=== PATIENT | female | born 1980 ===

== ENCOUNTER 2021-01-12 14:41 | Outpatient (REF) | payer MEDICAID, SELFPAY ==
--- OUTSIDE RECORDS SUMMARY | 2021-01-12 14:59 | XMS_ITS | Continuity of Care Document ---
:1980 Author Organization [facility] Address [address] [place] [address] Care Team Providers Name Role Phone Clara Huntley Primary Care Physician Allergies, Adverse Reactions, Alerts Allergen Type Severity Reaction Last Updated Verified Status codeine Adverse Reaction nausea September 26, 2016 Y Active Medications Active Medications Medication Dose Units Route Sig Qty Start Date Status Trazodone Hydrochloride 100 mg ORAL BEDTIME May 16, 2014 Active [Trazodone 100 mg tab] Omeprazole 20 mg ORAL DAILY May 16, 2014 Acti ve Fluoxetine Hydrochloride 40 mg ORAL DAILY Decemb r 2013 Active [Fluoxetine 40 mg cap] Cyclobenzaprine 10 MG ORAL Q8H PRN For pain 4 September 132016 Active Naproxen 500 MG ORAL TWICE A DAY 20 September 26, 2016 Acti ve Discontinued Medications Medication Dose Units Route Sig Qty Start Date Discontinu ed Date Status 1 ORAL DAILY August 17, 2011 November 12, 2 012 Discontinued Problem List No problem information available. Procedures Procedure Date Status CT Abd Pel w/o Contrast September 26, 2016 active Chest 2 vw July 24, 2016 completed EMERGENCY DEPT VISIT July 24, 2016 active EMERGENCY DEPT VISIT July 24, 2016 active ELECTROCARDIOGRAM REPORT July 24, 2016 active ELECTROCARDIOGRAM TRACING July 24, 2016 active FIBRIN DEGRADATION QUANT July 24, 2016 active COMPLETE CBC W/AUTO DIFF WBC July 24, 2016 active ASSAY OF UREA NITROGEN July 24, 2016 active ASSAY OF TROPONIN QUANT July 24, 2016 active ASSAY THYROID STIM HORMONE July 24, 2016 active ASSAY OF LIPASE July 24, 2016 active ASSAY GLUCOSE BLOOD QUANT July 24, 2016 active ASSAY OF CREATININE July 24, 2016 active ELECTROLYTE PANEL July 24, 2016 active CHEST X-RAY 2VW FRONTAL&LATL July 24, 2016 active ROUTINE VENIPUNCTURE July 24, 2016 active ECG MONIT/REPRT UP TO 48 HRS July 16, 2016 active ECG MONIT/REPRT UP TO 48 HRS July 16, [address] Abd Pel w/ Contrast June 02, 2016 completed URINE TEST June 02, 2016 active URINALYSIS AUTO W/O SCOPE June 02, 2016 active HEPATIC FUNCTION PANEL June 02, [address] ABD & PELV W/CONTRAST June 02, 2016 active Reason for Referral Reason for Referral Date Referral Provider Office Contact Locat ion was Provided Relevant Diagnostic Tests and/or Laboratory Data Laboratory Results Test Date/Time Result Interp. Ref. Result Comment Range White Blood Count September 26, 2016 10.30 1000/mm3 4.8-10.8 3:20pm Red Blood Count September 26, 2016 4.65 M/mm3 4.20-5.40 3:20pm Hemoglobin September 26, 2016 12.7 g/dL 12.0-16.0 3:20pm Hematocrit September 26, 2016 38.4 % 37-47 3:20pm Mean Corpuscular September 26, 2016 82.6 fL 81.0-99.0 Volume 3:20pm Mean Corpuscular September 26, 2016 27.3 pg 27-31 Hemoglobin 3:20pm Mean Corpuscular September 26, 2016 33.1 g/dL 33-37 Hemoglobin Concent 3:20pm Red Cell Distribution September 26, 2016 13.5 % 11.5-14.5 Width 3:20pm Platelet Count September 26, 2016 466 1000/mm3 High 140-440 3:20pm Mean Platelet Volume September 26, 2016 9.4 fL 7.4-10.4 3:20pm Neutrophils (%) September 26, 2016 56.9 % 40.0-72.0 (Auto) 3:20pm Lymphocytes (%) September 26, 2016 32.9 % 17-45 (Auto) 3:20pm Monocytes (%) (Auto) September 26, 2016 8.7 % 3-11 3:20pm Eosinophils (%) September 26, 2016 1.2 % 0-3 (Auto) 3:20pm Basophils (%) (Auto) September 26, 2016 0.3 % 0-1 3:20pm Neutrophils # (Auto) September 26, 2016 5.86 1000/mm3 1.4-6.5 3:20pm Lymphocytes # (Auto) September 26, 2016 3.39 1000/mm3 1.2-3.4 3:20pm Monocytes # (Auto) September 26, 2016 0.90 1000/mm3 High 0.0-0.8 3:20pm Eosinophils # (Auto) September 26, 2016 0.12 1000/mm3 0.0-0.7 3:20pm Basophils # (Auto) September 26, 2016 0.03 1000/mm3 0.0-0.1 3:20pm Differential Method September 26, 2016 Automated 3:20pm Erythrocyte September 16, 2016 6 mm/hr 0-15 Sedimentation Rate 4:00pm D-Dimer July 24, < 100 ng/mLDDU 1-600 This test should 2017 6:50pm not be used a s absolute evide nce for PE or DVT. As with all in vi tro diagnostic alfredo ts, the results sh ould be interpreted by clinician in conjunction wi clinical findi ngs and other test results. Sodium Level September 26, 2016 139 mmol/L 137-145 3:20pm Potassium Level September 26, 2016 4.1 mmol/L 3.6-5.0 3:20pm Chloride Level September 26, 2016 101 mmol/L 98-107 3:20pm Carbon Dioxide Level September 26, 2016 27 mmol/L 22-30 3:20pm Anion Gap September 26, 2016 11 7-16 3:20pm Blood Urea Nitrogen September 26, 2016 10 mg/dL 7-17 3:20pm Creatinine September 26, 2016 0.7 mg/dL 0.52-1.04 3:20pm Glomerular Filtration September 26, 2016 > 60 mL/min Rate Calc 3:20pm Glucose Level September 26, 2016 95 mg/dL 70-100 3:20pm Calcium Level September 26, 2016 9.0 mg/dL 8.4-10.2 3:20pm Calcium Adjusted for September 26, 2016 9.1 mg/dL 8.4-10.2 Albumin 3:20pm Total Bilirubin September 26, 2016 0.6 mg/dL 0.2-1.3 3:20pm Direct Bilirubin June 02, 0.0 mg/dL 0-0.3 2015 4:47pm Aspartate Amino September 26, 2016 24 U/L 14-36 Transf (AST/SGOT) 3:20pm Alanine September 26, 2016 30 U/L 9-52 Aminotransferase 3:20pm (ALT/SGPT) Creatine Kinase September 16, 2016 62 U/L 30-137 4:00pm Troponin I July 24, < 0.012 ng/mL 0-0.034 Reference Range: <0.034 ng/mL 2016 6:50pm AMI Cut-off 0.120 ng/mL Total Protein September 26, 2016 6.8 g/dL 6.3-8.2 3:20pm Albumin September 26, 2016 4.2 g/dL 3.5-5.0 3:20pm Alkaline Phosphatase September 26, 2016 47 U/L 38-126 3:20pm Lipase September 26, 2016 136 U/L 23-300 3:20pm Folate June 17, 18.5 ng/mL Deficient: L ess than 3.4 ng/mL 2016 12:06am Indetermina te: 3.4-5.4 ng/mL Normal: Grea ter than 5.4 ng/mL Test Performed by: [place] [address] Stock Worker: Bean Almanza MD , Ph D Vitamin D June 17, 59 pg/mL -----ADDITIONAL INFORMATION 1,25-Dihydroxy 2016 12:06am This alfredo t was developed and its performance characteristics determined by [facility] in a manner consistent with CLIA requirements. This test has not been cleared or approved by the U.S. Food and Drug Administration. Test Performed by: [place] [address] Laboratory Dir bita: Fer Castro II, M.D., Ph.D. Free Thyroxine June 17, 1.26 ng/dL 0.78-2.19 2016 12:06am Thyroid Stimulating July 24, 1.43 mlU/L 0.47-4.68 Hormone (TSH) 2016 6:50pm Vitamin B12 Level June 17, 303 pg/mL [phone] 12:06am Advance Directives Advance Directive Response Recorded Date/Time Do we have a copy on file here at [facility] [place]? No A pril 2016 3:48pm Does patient have an Advanced Directive? No March 31, 2010 9:03pm Pt has a Living Will? No March 31, 2010 9 :03pm Pt has a Power of Information Systems Architect? No March 31, 2010 9:03pm Chief Complaint and Reason for Visit Encounter Admit Date Chief Complaint Reason for Visit Departed Emergency September 26, 2016 1:49pm back/abdominal pain Hospital Discharge Instructions No known hospital discharge instructions. Hospital Discharge Medications Medication Dose Units Route Sig Qty Days Order Status Instru ctions Date 1 ORAL DAILY August 162011 Trazodone 100 mg ORAL BEDTIME May Hydrochloride 2013 Omeprazole 20 mg ORAL DAILY May Fluoxetine 40 mg ORAL DAILY May Hydrochloride 2013 Cyclobenzaprine 10 MG ORAL Q8H PRN 4 September 26, Acti ve For pain 2016 Naproxen 500 MG ORAL TWICE A 20 September 262016 Encounters Encounter Facility Location Admit/Visit Discharge/Departure Atte nding Date Date Provider Departed [facility] Emergency September 26September 26, 2016 4:39pm [facility] 2016 1:49pm Departed [facility] September 16, 2016 September 16, 2016 8:32pm [facility] 8:31pm [facility] Departed [facility] Emergency July 24July 24, 2016 [facility] Department 2016 6:09pm 7:51pm Registered [facility] Estefany Registered [facility] June 17, [facility] 2016 4:31pm [facility] Departed [facility] Emergency June 02June 02, 2016 [facility] Department 2015 4:34pm 9:21pm Functional Status No known functional status. Immunizations No known immunizations. Payers Payer Name Policy Type Covered Covered Relationship Subscriber Sub scriber Id Democrat Democrat Id BLUE CROSS Commercial DHIRAJ [id number] Self/Same as DHIRAJ HENDRICKSON [id number] [place] [id number] Patient SELF PAY Personal Plan of Care No Known Plan of Care Information Social History Query Response Date Recorded Comment Living Situation With Spouse December 14, 2014 8:21am With Family Query Response Start Date Stop Date Smoking Status Never Smoker Vital Signs Vital Reading Result Reference Range Collection Date/ Time Height 5 ft 4 in May 19, 2014 10:04am Weight 70.307 kg September 26, 2016 2 :39pm Temperature 98.6 F 97.6 F-99.6 F September 26, 2016 2 :39pm Pulse 65 BPM 60-100 September 26, 2016 4 :35pm Respiration 18 RPM 12-24 September 26, 2016 2 :39pm Pulse Oximetry 98 % 95-100 September 26, 2016 2 :39pm Blood Pressure Systolic 120 100-140 September 4:35pm Blood Pressure Diastolic 68 50-85 September 132016 4:35pm Body Mass Index n/a
--- OUTSIDE RECORDS SUMMARY | 2021-01-12 14:59 | XMS_ITS | Continuity of Care Document ---
:1980 Author Organization [facility] Address [address] [place] [address] Care Team Providers Name Role Phone Baer Primary Care Physician Unavailable Allergies, Adverse Reactions, Alerts Allergen Type Severity Reaction Last Updated Verified Status codeine Adverse Reaction Unknown December 10, 2018 Y Active Medications Active Medications Medication Dose Units Route Sig Qty Days Start Date St atus Multivitamin Patch Thrive December 10, 2018 Active Sulfamethoxazole-Trimethop 1 TAB ORAL TWICE A DAY 20 1 0 December 10, 2018 Active rim [Bactrim Ds] Discontinued Medications Medication Dose Units Route Sig Qty Days Start Discontinued Status Date Date 1 ORAL DAILY August 16, November 13, 2011 Discontinued 2011 Trazodone 100 MG ORAL BEDTIME MayJune 06 , Discontinued Hydrochloride 2013 [Trazodone 100 mg tab] Omeprazole 20 MG ORAL DAILY MayMay 27 , Discontinued 2013 Fluoxetine 40 MG ORAL DAILY MayJune 06 , Discontinued Hydrochloride 2013 [Fluoxetine 40 mg cap] Cyclobenzaprine 10 MG ORAL Q8H PRN 4 September 26, Dece mber 13, Discontinued For pain 2016 2016 Naproxen 500 MG ORAL TWICE A 20 September 26May 27 , Discontinued DAY 2016 2017 Vitamin B-2 May 2 3, Discontinued 2016 2018 fiber MayJune 06, Di scontinued 2016 Cyclobenzaprine 10 MG ORAL THREE 26 May Decemb er 23, Discontinued TIMES A 2016 DAY PRN For muscle spasm Ibuprofen 600 MG ORAL THREE 13 JuneJune 06, Discontinued TIMES A 2016 DAY PRN For pain Penicillin V 500 MG ORAL TWICE A 20 24 MayJune 16, Discontinued Potassium DAY 2017 2019 Problem List Active Problems Medical Problem Onset Date Status Right lower quadrant abdominal pain May 10, 2014 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, 2014 Pain in female genitalia on intercourse January 26, 2014 Dizziness and giddiness January 30, 2014 Dysmenorrhea January 26, 2014 Pyelonephritis Active Osteoarthritis of cervical spine with myelopathy September 14 Inactive/Resolved Problems Medical Problem Onset Date Status Strep pharyngitis Inactive Procedures Procedure Date Status Group A Streptococcus Screen (CHELE) June 06, 2018 compl eted Relevant Diagnostic Tests and/or Laboratory Data Microbiology Results Procedure Source Result Collection Date/Time Result Date/Time Group A Streptococcus Throat No results June 06, 2018 Screen (CHELE) entered 12:19pm Hospital Discharge Instructions Additional Discharge Instructions Take the antibiotic as prescribed. Drink plenty of fluids. Ibuprofen/tylenol as needed for discomfort. If any acute worsening such as increased pain, fevers, or vomiting go to the emergency room. No Instructions/Education Provided Hospital Discharge Medications Medication Dose Units Route Sig Qty Days Order Status Instru ctions Date 1 ORAL DAILY August 162011 Trazodone 100 MG ORAL BEDTIME May Discontinue d Hydrochloride 2013 Omeprazole 20 MG ORAL DAILY May Discontinue d 2013 Fluoxetine 40 MG ORAL DAILY May Discontinue d Hydrochloride 2013 Cyclobenzaprine 10 MG ORAL Q8H PRN September 26, Disc ontinued For pain 2016 Naproxen 500 MG ORAL TWICE A September 26, Discontinue d DAY 2016 Vitamin B-2 May Discontinu ed 2016 fiber May Discontinued 2016 Cyclobenzaprine 10 MG ORAL THREE 26 May Discon tinued TIMES A 2016 DAY PRN For muscle spasm Ibuprofen 600 MG ORAL THREE 13 June Discontinued TIMES A 2016 DAY PRN For pain Multivitamin December 10, Active Patch Thrive 2018 Sulfamethoxazole 1 TAB ORAL TWICE A 20 December 10, Acti ve -Trimethoprim DAY 2018 Penicillin V 500 MG ORAL TWICE A May Disconti nued Potassium 2017 Encounters Encounter Facility Location Admit/Visit Discharge/Departure Atte nding Date Date Provider Departed [facility] December 10, 2018 December 10, 2018 2:10 pm [facility] 12:21pm Ivelisse Departed [facility] June 06June 06, [facility] 2017 11:32am 12:56pm Ivelisse Functional Status Query Response Date Recorded Comment Living Situation With Family December 10, 2018 1:04pm With Spouse Immunizations No known immunizations. Payers Payer Name Policy Type Covered Covered Relationship Subscriber Sub scriber Id Libertarian Libertarian Id Aditive CROSS Commercial DHIRAJ [id number] Self/Same as DHIRAJ HENDRICKSON [id number] [place] 73 Patient MEDICAID OF Medicaid [id number] Self/Same as DHIRAJ HENDRICKSON [id number] [place] Patient SELF PAY Personal Plan of Care No Known Plan of Care Information Social History No known social history. Vital Signs Vital Reading Result Reference Range Collection Date/ Time Height 5 ft 4 in December 10, 2018 1: 04pm Weight 66.678 kg December 10, 2018 1: 04pm Temperature 98.3 F 97.6 F-99.6 F December 10, 2018 1: 04pm Pulse 76 BPM 60-100 December 10, 2018 1: 04pm Respiration 16 RPM 12-24 December 10, 2018 1: 04pm Pulse Oximetry 99 % 95-100 December 10, 2018 1: 04pm Blood Pressure Systolic 124 100-140 December 10, 2018 1:04pm Blood Pressure Diastolic 80 50-85 November 1:04pm Body Mass Index n/a
--- OUTSIDE RECORDS SUMMARY | 2021-01-12 14:59 | XMS_ITS | Continuity of Care Document ---
:1980 Author Organization [facility] Address [address] [place] [address] Care Team Providers Name Role Phone Clara Huntley Primary Care Physician Geo Ramey Attending Physician Allergies, Adverse Reactions, Alerts Allergen Type [...] Naproxen 500 MG ORAL TWICE A DAY September 26, 2016 Acti ve Discontinued Medications Medication Dose Units Route Sig Qty Start Date Discontinu ed Date Status 1 ORAL DAILY August 17, 2011 November 12, 012 Discontinued Problem List No problem information available. Procedures Procedure Date Status Urine Culture September 26, [address] Abd Pel w/o Contrast September 26, 2016 completed Chest 2 vw July 24, 2016 completed [...] Ref. Result Comment Range White Blood Count March 06, 10.71 1000/mm3 4.8-10.8 2016 4:28pm Red Blood Count March 06, 4.88 M/mm3 4.20-5.40 2016 4:28pm Hemoglobin March 06, 12.9 g/dL 12.0-16.0 2016 4:28pm Hematocrit March 06, 40.2 % 37-47 2016 4:28pm Mean Corpuscular March 06, 82.4 fL 81.0-99.0 Volume 2016 4:28pm Mean Corpuscular March 06, 26.4 pg Low 27-31 Hemoglobin 2017 4:28pm Mean Corpuscular March 06, 32.1 g/dL Low 33-37 Hemoglobin Concent 2016 4:28pm Red Cell Distribution March 06, 13.3 % 11.5-14.5 Width 2016 4:28pm Platelet Count March 06, 487 1000/mm3 High 091-231 3990 4:28pm Mean Platelet Volume March 06, 9.6 fL 7.4-10.4 2016 4:28pm Neutrophils (%) March 06, 66.6 % 40.0-72.0 (Auto) 2016 4:28pm Lymphocytes (%) March 06, 26.6 % 17-45 (Auto) 2016 4:28pm Monocytes (%) (Auto) March 06, 5.8 % 3-11 2016 4:28pm Eosinophils (%) March 06, 0.8 % 0-3 (Auto) 2016 4:28pm Basophils (%) (Auto) March 06, 0.2 % 0-1 2016 4:28pm Neutrophils # (Auto) March 06, 7.13 1000/mm3 High 1.4-6.5 2016 4:28pm Lymphocytes # (Auto) March 06, 2.85 1000/mm3 1.2-3.4 2017 4:28pm Monocytes # (Auto) March 06, 0.62 1000/mm3 0.0-0.8 2016 4:28pm Eosinophils # (Auto) March 06, 0.09 1000/mm3 0.0-0.7 2016 4:28pm Basophils # (Auto) March 06, 0.02 1000/mm3 0.0-0.1 2016 4:28pm Differential Method March 06, Automated 2016 4:28pm Erythrocyte March 06, 7 mm/hr 0-15 Sedimentation Rate 2016 4:28pm D-Dimer July 24, < 100 ng/mLDDU 1-600 This test should 2016 6:50pm not be used a s absolute evide nce for PE or DVT. As with all in vi tro diagnostic alfredo ts, the results sh ould be interpreted by clinician in conjunction wi clinical findi ngs and other test results. Urine RBC September 26, 2016 None seen /hpf 3:50pm Urine WBC September 26, 2016 0-2 /hpf 3:50pm Urine Squamous September 26, 2016 1+ /hpf Epithelial Cells 3:50pm Urine Bacteria September 26, 2016 1+ /hpf High 3:50pm Urine Mucus September 26, 2016 Present 3:50pm Urine Culture Done September 26, 2016 Yes UR INE SPECIMEN 3:50pm CULTURED Sodium Level March 06, 139 mmol/L 093-403 8640 4:28pm Potassium Level March 06, 3.9 mmol/L 3.6-5.0 2016 4:28pm Chloride Level March 06, 100 mmol/L 98-107 2016 4:28pm Carbon Dioxide Level March 06, 28 mmol/L 2016 4:28pm Anion Gap March 06, 11 7-16 2016 4:28pm Blood Urea Nitrogen March 06, 7 mg/dL -2016 4:28pm Creatinine March 06, 0.7 mg/dL 0.52-1.04 2017 4:28pm Glomerular Filtration March 06, > 60 mL/min Rate Calc 2016 4:28pm Glucose Level March 06, 127 mg/dL High 70-100 2017 4:28pm Calcium Level March 06, 9.9 mg/dL 8.4-10.2 2017 4:28pm Calcium Adjusted for March 06, 9.8 mg/dL 8.4-10.2 Albumin 2017 4:28pm Total Bilirubin March 06, 0.5 mg/dL 0.2-1.3 2016 4:28pm Direct Bilirubin June 02, 0.0 mg/dL 0-0.3 2015 4:47pm Aspartate Amino March 06, 29 U/L 14-36 Transf (AST/SGOT) 2016 4:28pm Alanine March 06, 38 U/L 9-52 Aminotransferase 2016 4:28pm (ALT/SGPT) Creatine Kinase September 16, 2016 62 U/L 30-137 4:00pm Troponin I July 24, < 0.012 ng/mL 0-0.034 Reference Range: <0.034 ng/mL 2016 6:50pm AMI Cut-off 0.120 ng/mL Total Protein March 06, 7.1 g/dL 6.3-8.2 2016 4:28pm Albumin March 06, 4.4 g/dL 3.5-5.0 2016 4:28pm Alkaline Phosphatase March 06, 58 U/L 38-126 2016 4:28pm Amylase Level March 06 67 U/L 30-110 2016 4:28pm Lipase March 06, 130 U/L 23-300 2016 4:28pm Folate June 17, 18.5 ng/mL Deficient: L ess than 3.4 ng/mL 2016 12:06am Indetermina te: 3.4-5.4 ng/mL Normal: Grea ter than 5.4 ng/mL Test Performed by: [place] [address] Starch Mangle Tender: Bean Almanza MD , Ph D Vitamin D June 17, 59 pg/mL -----ADDITIONAL INFORMATION 1,25-Dihydroxy 2016 12:06am This alfredo t was developed and its performance characteristics determined by [facility] in a manner consistent with CLIA requirements. This test has not been cleared or approved by the U.S. Food and Drug Administration. Test Performed by: [facility] [place][note 2] [address] [place] [address] Laboratory Dir bita: Fer Castro II, M.D., Ph.D. Free Thyroxine June 17, 1.26 ng/dL 0.78-2.19 2016 12:06am Thyroid Stimulating July 24, 1.43 mlU/L 0.47-4.68 Hormone (TSH) 2016 6:50pm Thyroid Stimulating March 06, 0.767 mlU/L 0.47-4.68 T SH cascade is not Hormone (TSH) 2016 4:28pm recommende d for patients in wh ich pituitary or hypothalmic disorders are suspected. Hemoglobin A1c March 24, 5.60 % 4.2-6.5 < 7% Bakari mmended goal by ADA guidelines Percent 2016 12:06am 7-8% Subopti mal by ADA guidelines >8% Further a ction suggested by ADA guidelines Estimated Average March 24, 114 mg/dL Glucose mg/dL 2016 12:06am Vitamin B12 Level June 3, 303 pg/mL 800-595 1426 12:06am Tissue March 06, < 1.2 U/mL --------REFERENCE VALUE Transglutaminase IgA 2016 4:28pm <4. 0 (Negative) Ab Tissue March 06, 1.6 U/mL --------REFERENCE VALUE Transglutaminase IgG 2017 4:28pm <6. 0 (Negative) Ab Test Performed by: [facility] [address], [place] [address] Lyme Disease March 11, Negative Referenc e Range: Negative Antibodies Value 2016 4:07pm Test Pe rformed by: [place] [address] Starch Mangle Tender: Bean Almanza MD , Ph D Toxoplasma IgG March 11, Negative Antibody 2017 4:07pm Toxoplasma IgG March 11, <3 IU/mL ------- REFERENCE VALUE Antibody Index Value 2016 4:07pm <=9 IU/mL (Negative) 10-11 IU/mL (E quivocal) >=12 IU/mL (Po sitive) Test Performed by: [facility] [place][note 2] [address] [place] [id number] Microbiology Results Procedure Source Result Collection Date/Time Result Date/Time Urine Culture Ur,Clean Catch No results entered September 26, 2016 4:41 pm Advance Directives Advance Directive Response Recorded Date/Time Do we have a copy on file here at [facility]? No [facility] 2016 3:48pm Does patient have an Advanced Directive? No March 31, 2010 9:03pm Pt has a Living Will? No March 31, 2010 9 :03pm Pt has a Power of Cotton Presser? No March 31, 2010 9:03pm Hospital Discharge Instructions No known hospital discharge instructions. Hospital Discharge Medications Medication Dose Units Route Sig Qty Days Order Status Instru ctions Date 1 ORAL DAILY August 162011 Trazodone 100 mg ORAL BEDTIME May Omeprazole 20 mg ORAL DAILY May Fluoxetine 40 mg ORAL DAILY May Hydrochloride 2013 Cyclobenzaprine 10 MG ORAL Q8H PRN 4 September 26, Acti ve For pain 2016 Naproxen 500 MG ORAL TWICE A 20 September 262016 Encounters Encounter Facility Location Admit/Visit Discharge/Departure Atte nding Date Date Provider Departed [facility] April 02April 02, [facility] 2016 7:59pm 8[facility]00pm [facility] 11[facility] 6:[facility] 6[facility], [facility] 8:27[facility] Departed [facility] Emergency September 26September 26, 2016 4:39pm [facility] 2016 1:49pm Departed [facility] September 16, 2016 September 16, 2016 8:32pm [facility] 8:31[facility] [place] Departed [facility] Emergency July 24July 24, 2016 [facility] Department 2016 6:09pm 7:51pm Registered [facility] 3:[facility] Estefany Registered [facility] June 17 V[facility]ps, [facility] 2017 4:31pm [facility] Departed [facility] Emergency June 02June 02, 2016 [facility] Department 2016 4:34pm 9:21pm Functional Status No known functional status. Immunizations No known immunizations. Payers Payer Name Policy Type Covered Covered Relationship Subscriber Sub scriber Id Democrat Democrat Id BLUE CROSS Commercial DHIRAJ [id number] Self/Same as DHIRAJ HENDRICKSON [id number] [facility] SELF PAY Personal Plan of Care No Known Plan of Care Information Social History Query Response Date Recorded Comment Living Situation With Spouse December 14, 2014 8:21am With Family Vital Signs Vital Reading Result Reference Range [...]
--- OUTSIDE RECORDS SUMMARY | 2021-01-12 14:59 | XMS_ITS | Continuity of Care Document ---
:1980 Author Organization [facility] Address [address] [place] [address] Care Team Providers Name Role Phone Clara [...] Platelet Count March 06, 487 1000/mm3 High [phone] 4:28pm Mean Platelet Volume March 06, 9.6 [...] CULTURED Sodium Level March 06, 139 mmol/L [phone] 4:28pm Potassium Level March 06, 3.9 mmol/L [...] than 5.4 ng/mL Test Performed by: [place] [address] Coach Operator: Bean Almanza MD , Ph D Vitamin D June 17, 59 pg/mL -----ADDITIONAL INFORMATION 1,25-Dihydroxy 2016 12:06am This alfredo t was developed and its performance characteristics determined by [facility] in a manner consistent with CLIA requirements. This test has not been cleared or approved by the U.S. Food and Drug Administration. Test Performed by: [facility] [address] [place] [address] Laboratory Dir bita: Fer Castro II, M.D., [...] Vitamin B12 Level June 3, 303 pg/mL [phone] 12:06am Tissue March 06, < 1.2 U/mL --------REFERENCE VALUE Transglutaminase IgA 2016 4:28pm <4. 0 (Negative) Ab Tissue March 06, 1.6 U/mL --------REFERENCE VALUE Transglutaminase IgG 2017 4:28pm <6. 0 (Negative) Ab Test Performed by: [facility] [address], [place] [address] Lyme Disease March 11, Negative Referenc e Range: Negative Antibodies Value 2016 4:07pm Test Pe rformed by: [place] [address] Coach Operator: Bean Almanza MD , Ph D Toxoplasma IgG March 11, Negative Antibody 2017 4:07pm Toxoplasma IgG March 11, <3 IU/mL ------- REFERENCE VALUE Antibody Index Value 2016 4:07pm <=9 IU/mL (Negative) 10-11 IU/mL (E quivocal) >=12 IU/mL (Po sitive) Test Performed by: [facility] [address] [place] [address] Microbiology Results Procedure Source Result Collection Date/Time Result Date/Time Urine Culture Ur,Clean Catch No results entered September 26, 2016 4:41 pm Advance Directives Advance Directive Response Recorded Date/Time Do we have a copy on file here at [facility]? No A [facility] 2016 3:48pm Does patient have an Advanced Directive? No March 31, 2010 9:03pm Pt has a Living Will? No March 31, 2010 9 :03pm Pt has a Power of Chronometer Adjuster? No March 31, 2010 9:03pm Hospital Discharge [...] Discharge/Departure Atte nding Date Date Provider Departed [facility] April 02April 02, [facility] 2016 7:59pm 8:00pm [facility], [facility] 6:[facility], [facility] 8:26[facility] 8:27pm [facility] Departed [facility] Emergency September 26September 26, 2016 4:39pm [facility] 2016 1:49pm Departed [facility] September 16, 2016 September 16, 2016 [facility] Hanna Omega Departed [facility] Emergency July 24July 24, 2016 [facility] Department 2016 6:09pm 7:51pm Registered [facility] 3:[facility] Estefany Registered [facility] June 17 Vireggieps, [facility] 2017 4:31pm [facility] Departed [facility] Emergency June 02June 02, 2016 [facility] Department 2016 4:34pm 9:21pm Functional Status No known functional status. Immunizations No known immunizations. Payers Payer Name Policy Type Covered Covered Relationship Subscriber Sub scriber Id Republican Republican Id BLUE CROSS Commercial DHIRAJ [id number] Self/Same as DHIRAJ HENDRICKSON [id number] [facility] Patient SELF PAY Personal Plan of [...]
--- OUTSIDE RECORDS SUMMARY | 2021-01-12 14:59 | XMS_ITS | Continuity of Care Document ---
:1980 Author Organization [facility] Address [address] [place] [address] Care Team Providers Name Role Phone PCP, Choice Primary Care Physician Unavailable Baer Attending Physician Allergies, Adverse Reactions, Alerts Allergen Type Severity Reaction Last Updated Verified Status codeine Adverse Reaction Unknown unknown July 01, 2019 Y Active Medications Active Medications Medication Dose Units Route Sig Qty Days Start Date St atus Norethindrone Acetate 5 MG ORAL DAILY 30 Ja nuary 2019 Active Multivitamin Patch Thrive December 10, 2018 Active Discontinued Medications Medication Dose Units Route Sig [...] September 26May 27 , Discontinued DAY 2016 2016 Vitamin B-2 MayMay 16 3, Discontinued 2016 2018 fiber MayJune 06, Di scontinued 2016 Cyclobenzaprine 10 MG ORAL THREE 26 May Decemb er 23, Discontinued TIMES A 2016 DAY PRN For muscle spasm Ibuprofen 600 MG ORAL THREE 13 JuneJune 06, Discontinued TIMES A 2016 DAY PRN For pain Sulfamethoxazole 1 TAB ORAL TWICE A 20 December 10, December 20, 2018 Discontinued -Trimethoprim DAY 2019 [Bactrim Ds] Penicillin V 500 MG ORAL TWICE A 20 May 2, Discontinued Potassium DAY 2017 Problem List Active Problems Medical Problem Onset Date Status Right lower quadrant abdominal pain May 10, 2014 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, 2014 Pain in female genitalia on intercourse January 26, 2014 Dizziness and giddiness January 30, 2014 Dysmenorrhea January 26, 2014 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 Ref. Range Result Comment Thyroid Stimulating July 01, 2019 0.993 mlU/L 0.47-4.68 TSH cascade is not Hormone (TSH) 11:49am recommended for patients in ich pituitary or hypothalmic disorders are suspected. Microbiology Results Procedure Source Result Collection Date/Time Result Date/Time Urine Culture Ur,Clean Catch Escherichia Coli December 10, 2018 1:42pm December 12, 2018 8:19am Hospital Discharge Instructions No known hospital discharge instructions. Hospital Discharge Medications Medication Dose Units Route Sig Qty Days Order Status Instru ctions Date Norethindrone 5 MG ORAL DAILY 14 July Active 2019 1 ORAL DAILY August 16, Discontinued 2011 Trazodone 100 MG ORAL BEDTIME May Discontinue d Hydrochloride 2013 Omeprazole 20 MG ORAL DAILY May Discontinue d 2013 Fluoxetine 40 MG ORAL DAILY May Discontinue d Hydrochloride 2013 Cyclobenzaprine 10 MG ORAL Q8H PRN 4 September 26, Disc ontinued For pain 2016 [...] TAB ORAL TWICE A 20 December 10, Disc ontinued -Trimethoprim DAY 2018 Penicillin V 500 MG ORAL TWICE A May Disconti nued Potassium 2017 Encounters Encounter Facility Location Admit/Visit Discharge/Departure Atte nding Date Date Provider [facility]ed [facility] August 16, 2019 August 16, 2019 7:21pm [facility] 7:20pm Oscar patel Departed [facility] [employer] July 01July 01, 2019 Praveen rene [facility] 2019 11:49am 11:50am Dianna h Departed [facility] July 01July 01, 2019 Morgan christianson [facility] [employer] [employer] 2019 11:07am 12:01pm Elizabe th ovider Office Visit Departed [facility] July 01July 01, 2019 Morgan christianson [facility] [employer] 2019 11:06am 12:01pm Elizabe th ovider Office Visit Departed [facility] July 01July 01, 2019 Jolly bullock [facility] 2019 11:04am 11:05am Elizab eth [employer] Departed [facility] June 23June 23, 2019 Jolly bullock [facility] [employer] 2019 9:26am 10:08am Dianna h ovider Office Visit Departed [facility] December 10, 2018 December 10, 2018 2:10 pm [facility] 12:21pm Alblinda Functional Status Query Response Date Recorded Comment Living Situation With Family December 10, 2018 1:04pm With Spouse Immunizations No known immunizations. Payers Payer Name Policy Type Covered Covered Relationship Subscriber Sub scriber Id Green Party Green Party Id BLUE CROSS Commercial DHIRAJ [id number] Self/Same as DHIRAJ EMEKA [id number] [facility] 73 Patient MEDICAID OF Medicaid [id number] Self/Same as DHIRAJ EMEKA [id number] [facility] Patient SELF PAY Personal Plan of Care No Known Plan of Care Information Social History Query Response Start Date Stop Date Smoking Status Never smoker Vital Signs Vital Reading Result Reference Range Collection Date/ Time Height 5 ft 4 in July 01, 2019 11:31am Weight n/a Temperature 98.3 F 97.6 F-99.6 F December 10, 2018 1: 04pm Pulse 96 BPM 60-100 July 01, 2019 11:31am Respiration 18 RPM 12-24 July 01, 2019 11:31am Pulse Oximetry 99 % 95-100 December 10, 2018 1: 04pm Blood Pressure Systolic 113 100-140 July 01, 2019 11:31am Blood Pressure Diastolic 72 50-85 July 01, 2019 11:31am Body Mass Index 25.7 June 23, 2019 9:43am
--- OUTSIDE RECORDS SUMMARY | 2021-01-12 14:59 | XMS_ITS | Continuity of Care Document ---
:[address] [facility] Address [address] [place] [address] Care Team Providers Name Role Phone Out of Town Primary Care Physician Unavailable Allergies, Adverse Reactions, Alerts Allergen Type Severity Reaction Last Updated Verified Status codeine Adverse Reaction nausea September 26, 2016 Y Active Medications Active Medications Medication Dose Units Route Sig Qty Days Start Date St atus Penicillin V Potassium 500 MG ORAL TWICE A DAY 03 04June 06, 2018 Active Discontinued Medications Medication Dose Units [...] TIMES A 2016 DAY PRN For pain Problem List Active Problems Medical Problem Onset Date Status Strep pharyngitis Active Procedures Procedure Date Status Group A Streptococcus Screen (CHELE) June 06, 2018 activ e Relevant Diagnostic Tests and/or Laboratory Data No known relevant diagnostic tests, laboratory data, and/or discharge summary. Advance Directives Advance Directive Response Recorded Date/Time Do we have a copy on file here at [facility]? No A pri 2016 3:48pm Does patient have an Advanced Directive? No March 31, 2010 9:03pm Pt has a Living Will? No March 31, 2010 9 :03pm Pt has a Power of Brake Operator Sheet Metal? No March 31, 2010 9:03pm Hospital Discharge [...] V 500 MG ORAL TWICE A May Active Potassium DAY 2017 Encounters Encounter Facility Location Admit/Visit Discharge/Departure Atte nding Date Date Provider Departed [facility] June 06June 06, [facility] 2017 11:32am 12:56pm [facility] Functional Status No known functional status. Immunizations No known immunizations. Payers Payer Name Policy Type Covered Covered Relationship Subscriber Sub scriber Id Republican Republican Id BLUE CROSS Commercial DHIRAJ [id number] Self/Same as DHIRAJPADMA MURPHYIS [id number] [facility] 73 Patient MEDICAID OF Medicaid DHIRAJ [id number] Self/Same as DHIRAJ EMEKA [id number] [facility] Patient SELF PAY Personal Plan of Care No Known Plan of Care Information Social History Query Response Date Recorded Comment Living Situation With Spouse December 14, 2014 8:21am With Family Query Response Start Date Stop Date Smoking Status Never smoker Vital Signs Vital Reading Result Reference Range Collection Date/ Time Height 5 ft 4 in June 06 12:12pm Weight 69.853 kg June 06 12:12pm Temperature 99.0 F 97.6 F-99.6 F June 06 8 12:12pm Pulse 80 BPM 60-100 June 06 8 12:12pm Respiration 16 RPM 06-07June 06 8 12:12pm Pulse Oximetry 99 % 95-100 June 06 8 12:12pm Blood Pressure Systolic 124 100-140 June 06, 2018 12:12pm Blood Pressure Diastolic 80 50-85 [facility] 2017 12:12pm Body Mass Index 26.4 June 06 8 12:12pm
--- OUTSIDE RECORDS SUMMARY | 2021-01-12 14:59 | XMS_ITS | Continuity of Care Document ---
:1980 Author Organization [facility] Address [address] [place] [address] Care Team Providers Name Role Phone Yuko, Clara Primary Care Physician Baer Attending Physician Allergies, Adverse Reactions, Alerts [...] ve Fluoxetine Hydrochloride 40 mg ORAL DAILY Decee r 2013 Active [Fluoxetine 40 mg cap] [...] Platelet Count March 06, 487 1000/mm3 High [phone] 4:28pm Mean Platelet Volume March 06, 9.6 [...] # (Auto) March 06, 0.09 1000/mm3 0.0-0.7 2017 4:28pm Basophils # (Auto) March 06, 0.02 [...] CULTURED Sodium Level March 06, 139 mmol/L [phone] 4:28pm Potassium Level March 06, 3.9 mmol/L 3.6-5.0 2016 4:28pm Chloride Level March 06, 100 mmol/L 98-107 2016 4:28pm Carbon Dioxide Level March 06, 28 mmol/L 2016 4:28pm Anion Gap March 06 7-16 2016 4:28pm Blood Urea Nitrogen March 06, 7 mg/dL -2016 4:28pm Creatinine March 06, 0.7 mg/dL 0.52-1.04 2017 4:28pm Glomerular Filtration March 06, > 60 mL/min Rate Calc 2017 4:28pm Glucose Level March 06, 127 mg/dL [...] than 5.4 ng/mL Test Performed by: [place] [address] Block Sorter: Bean Almanza MD , Ph D Vitamin D June 17, 59 pg/mL -----ADDITIONAL INFORMATION 1,25-Dihydroxy 2016 12:06am This alfredo t was developed and its performance characteristics determined by [facility] in a manner consistent with CLIA requirements. This test has not been cleared or approved by the U.S. Food and Drug Administration. Test Performed by: [address] [address] Laboratory Dir bita: Fer Castro II, M.D., [...] Vitamin B12 Level June 3, 303 pg/mL [phone] 12:06am Tissue March 06, < 1.2 U/mL --------REFERENCE VALUE Transglutaminase IgA 2016 4:28pm <4. 0 (Negative) Ab Tissue March 06, 1.6 U/mL --------REFERENCE VALUE Transglutaminase IgG 2017 4:28pm <6. 0 (Negative) Ab Test Performed by: [facility] [address] , [place] [address] Lyme Disease March 11, Negative Referenc e Range: Negative Antibodies Value 2016 4:07pm Test Pe rformed by: [place] [address] Block Sorter: Bean Almanza MD , Ph D Toxoplasma IgG March 11, Negative Antibody 2016 4:07pm Toxoplasma IgG March 11, <3 IU/mL ------- REFERENCE VALUE Antibody Index Value 2016 4:07pm <=9 IU/mL (Negative) 10-11 IU/mL (E quivocal) >=12 IU/mL (Po sitive) Test Performed by: [facility] [address] [place] [address] Microbiology Results Procedure Source Result Collection Date/Time Result Date/Time Urine Culture Ur,Clean Catch No results entered September 26, 2016 4:41 pm Advance Directives Advance Directive Response Recorded Date/Time Do we have a copy on file here at [facility]? No A [facility] 2016 3:48pm Does patient have an Advanced Directive? No March 31, 2010 9:03pm Pt has a Living Will? No March 31, 2010 9 :03pm Pt has a Power of Mapper? No March 31, 2010 9:03pm Hospital Discharge [...] 500 MG ORAL TWICE A 20 September 26 DAY 2016 Encounters Encounter Facility Location Admit/Visit Discharge/Departure Atte nding Date Date Provider Departed [facility] March 24March 24, 2017 Baer , [facility] 2016 7:59pm 8:00pm [facility] 2016 6:48pm 6:49pm [facility]March 06, [facility] 2016 8:26pm 8:27pm [facility] Departed [facility] Emergency September 26September 26, 2016 4:39pm [facility] Department 2016 1:49pm Departed [facility] [place] September 16, 2016 September 16, 2016 [facility] Departed [facility] July 24July 24, 2016 [facility] Department 2016 6:09pm 7:51pm Registered [facility] 2016 3:37pm Estefany Registered [facility] [place] [facility] Departed [facility] June 02June 02, 2016 [facility] Department 2015 4:34pm 9:21pm Functional Status No known functional status. Immunizations No known immunizations. Payers Payer Name Policy Type Covered Covered Relationship Subscriber Sub scriber Id Alliance Party Alliance Party Id ALEXA CROSS Commercial DHIRAJ [id number] Self/Same as DHIRAJ HENDRICKSON [id number] [place] EMEKA Herring Patient SELF PAY Personal Plan of Care [...]
--- OUTSIDE RECORDS SUMMARY | 2021-01-12 14:59 | XMS_ITS | Continuity of Care Document ---
:1980 Author Organization [facility] Address [address] [place] [address] Care Team Providers Name Role Phone Yuko, [...] Platelet Count March 06, 487 1000/mm3 High [phone] 4:28pm Mean Platelet Volume March 06, 9.6 [...] CULTURED Sodium Level March 06, 139 mmol/L [phone] 4:28pm Potassium Level March 06, 3.9 mmol/L [...] than 5.4 ng/mL Test Performed by: [place] [address] Human Capital Analyst: Bean Almanza MD , Ph D Vitamin D June 17, 59 pg/mL -----ADDITIONAL INFORMATION 1,25-Dihydroxy 2016 12:06am This alfredo t was developed and its performance characteristics determined by [facility] in a manner consistent with CLIA requirements. This test has not been cleared or approved by the U.S. Food and Drug Administration. Test Performed by: [address] [address] Laboratory Dir bita: Fer Castro II, M.D., Ph.D. Free Thyroxine June 17, 1.26 ng/dL 0.78-2.19 2016 12:06am Thyroid Stimulating July 24, 1.43 mlU/L 0.47-4.68 Hormone (TSH) 2016 6:50pm Thyroid Stimulating March 06, 0.767 mlU/L 0.47-4.68 T SH cascade is not Hormone (TSH) 2016 4:28pm recommende d for patients in wh ich pituitary or hypothalmic disorders are suspected. Vitamin B12 Level June 3, 303 pg/mL [phone] 12:06am Microbiology Results Procedure Source Result Collection Date/Time Result Date/Time Urine Culture Ur,Clean Catch No results entered September 26, 2016 4:41 pm Advance Directives Advance Directive Response Recorded Date/Time Do we have a copy on file here at [facility]? No A [facility] 2016 3:48pm Does patient have an Advanced Directive? No March 31, 2010 9:03pm Pt has a Living Will? No March 31, 2010 9 :03pm Pt has a Power of Acls Specialist? No March 31, 2010 9:03pm Hospital Discharge Instructions No known hospital discharge instructions. Hospital Discharge Medications Medication Dose Units Route Sig Qty Days Order Status Instru ctions Date 1 ORAL DAILY August 162011 Trazodone 100 mg ORAL BEDTIME May Active Hydrochloride 2013 Omeprazole 20 mg ORAL DAILY May Fluoxetine 40 mg ORAL DAILY May Active Hydrochloride 2013 Cyclobenzaprine 10 MG ORAL Q8H PRN 4 September 26, Acti ve For pain 2016 Naproxen 500 MG ORAL TWICE A 20 September 26 DAY 2016 Encounters Encounter Facility Location Admit/Visit Discharge/Departure Atte nding Date Date Provider Departed [facility] March 06March 06, 2017 Iveth elizabeth, [facility] September 26September 26, 2016 4:39pm [facility] Department 2016 1:49pm Departed [facility] [place] September 16, 2016 September 16, 2016 [facility] Departed [facility] Emergency July 24July 24, 2016 [facility] Department 2016 6:09pm 7:51pm Registered [facility] 3:37pm Estefany Registered [facility] [place] June 17 Yuko [facility] 2016 4:31pm [facility] Departed [facility] Emergency June 02June 02, 2016 [facility] Department 2015 4:34pm 9:21pm Functional Status No known functional status. Immunizations No known immunizations. Payers Payer Name Policy Type Covered Covered Relationship Subscriber Sub scriber Id Democrat Democrat Id ALEXA CROSS Commercial DHIRAJ [id number] Self/Same as DHIRAJ HENDRICKSON [id number] [place] EMEKA Herring Patient SELF PAY Personal [...]
--- OUTSIDE RECORDS SUMMARY | 2021-01-12 14:59 | XMS_ITS | Continuity of Care Document ---
:1980 Author Organization [facility] Address [address] [place] [address] Care Team Providers Name Role Phone Clara Huntley Primary Care Physician Geo Ramey Attending Physician Allergies, Adverse Reactions, Alerts Allergen Type Severity Reaction Last Updated Verified Status codeine Adverse Reaction nausea September 26, 2016 Y Active Medications Active Medications Medication Dose Units Route Sig Qty Start Date Status Trazodone Hydrochloride 100 MG ORAL BEDTIME May 16, 2014 Active [Trazodone 100 mg tab] Omeprazole 20 MG ORAL DAILY May 16, 2014 Acti ve Fluoxetine Hydrochloride 40 MG ORAL DAILY Decembe r 2013 Active [Fluoxetine 40 mg cap] [...] & PELV W/CONTRAST June 02, 2016 active Relevant Diagnostic Tests and/or Laboratory Data Laboratory [...] Platelet Count March 06, 487 1000/mm3 High [phone] 4:28pm Mean Platelet Volume March 06, 9.6 [...] # (Auto) March 06, 2.85 1000/mm3 1.2-3.4 2016 4:28pm Monocytes # (Auto) March 06, 0.62 [...] CULTURED Sodium Level March 06, 139 mmol/L [phone] 4:28pm Potassium Level March 06, 3.9 mmol/L 3.6-5.0 2016 4:28pm Chloride Level March 06, 100 mmol/L 98-107 2016 4:28pm Carbon Dioxide Level March 06, mmol/L 2016 4:28pm Anion Gap March 06-2016 4:28pm Blood Urea Nitrogen March 06, 7 mg/dL 12-29 4:28pm Creatinine March 06, 0.7 mg/dL 0.52-1.04 2017 4:28pm Glomerular Filtration March 06, > 60 mL/min Rate Calc 2016 4:28pm Glucose Level March 06, 127 mg/dL High 70-100 2016 4:28pm Calcium Level March 06, 9.9 mg/dL 8.4-10.2 2017 4:28pm Calcium Adjusted for March 06, 9.8 mg/dL 8.4-10.2 Albumin 2017 4:28pm Total Bilirubin March 06, 0.5 mg/dL 0.2-1.3 2017 4:28pm Direct Bilirubin June 02, 0.0 mg/dL [...] than 5.4 ng/mL Test Performed by: [place] [address] Telegraphic Typewriter Repairer: Bean Almanza MD , Ph D Vitamin D June 17, 59 pg/mL -----ADDITIONAL INFORMATION 1,25-Dihydroxy 2016 12:06am This alfredo t was developed and its performance characteristics determined by [facility] in a manner consistent with CLIA requirements. This test has not been cleared or approved by the U.S. Food and Drug Administration. Test Performed by: [facility] [address] [place] [address] Laboratory Dir bita: Fer Castro II, M.D., [...] Vitamin B12 Level June 3, 303 pg/mL [phone] 12:06am Tissue March 06, < 1.2 U/mL --------REFERENCE VALUE Transglutaminase IgA 2016 4:28pm <4. 0 (Negative) Ab Tissue March 06, 1.6 U/mL --------REFERENCE VALUE Transglutaminase IgG 2017 4:28pm <6. 0 (Negative) Ab Test Performed by: [facility] [address] , [place] [address] Lyme Disease March 11, Negative Referenc e Range: Negative Antibodies Value 2016 4:07pm Test Pe rformed by: [place] [address] Telegraphic Typewriter Repairer: Bean Almanza MD , Ph D Toxoplasma IgG March 11, Negative Antibody 2016 4:07pm Toxoplasma IgG March 11, <3 IU/mL ------- REFERENCE VALUE Antibody Index Value 2016 4:07pm <=9 IU/mL (Negative) 10-11 IU/mL (E quivocal) >=12 IU/mL (Po sitive) Test Performed by: [facility] [address] [place] [address] Microbiology Results Procedure Source Result Collection Date/Time Result Date/Time Urine Culture Ur,Clean Catch No results entered September 26, 2016 4:41 pm Advance Directives Advance Directive Response Recorded Date/Time Do we have a copy on file here at [facility] [place] [facility]? No A pri 2016 3:48pm Does patient have an Advanced Directive? No March 31, 2010 9:03pm Pt has a Living Will? No March 31, 2010 9 :03pm Pt has a Power of Fire Pot Operator? No March 31, 2010 9:03pm Hospital Discharge Instructions No known hospital discharge instructions. Hospital Discharge Medications Medication Dose Units Route Sig Qty Days Order Status Instru ctions Date 1 ORAL DAILY August 162011 Trazodone 100 MG ORAL BEDTIME May Omeprazole 20 MG ORAL DAILY May Fluoxetine 40 MG ORAL DAILY May Cyclobenzaprine 10 MG ORAL Q8H PRN 4 September 26, Acti ve For pain 2016 Naproxen 500 MG ORAL TWICE A 20 September 26 DAY 2016 Encounters Encounter Facility Location Admit/Visit Discharge/Departure Atte nding Date Date Provider Departed [facility] 02[facility], [facility] 2016 7:59pm 8:00pm [facility], [facility] 6:48pm 6:49pm [facility], [facility] 8[facility]26pm 8[facility], 2016 4:39pm [facility] 2016 1:49pm [facility]ed [facility] September 16, 2016 September 16, 2016 [facility]July [facility], 2016 [facility] 2016 6:09pm 7:51pm Registered [facility] 3:37pm Estefany [facility] 4:[facility] Departed [facility] Emergency June 02June 02, 2016 [facility] Department 2016 4:34pm 9:21pm Functional Status No known functional status. Immunizations No known immunizations. Payers Payer Name Policy Type Covered Covered Relationship Subscriber Sub scriber Id Constitution Party Constitution Party Id ALEXA CROSS Commercial DHIRAJ [id number] Self/Same as DHIRAJ HENDRICKSON [id number] [facility] Nevaeh Patient SELF PAY Personal Plan of Care [...]
--- OUTSIDE RECORDS SUMMARY | 2021-01-12 14:59 | XMS_ITS | Continuity of Care Document ---
:1980 Author Organization [facility] Address [address] [place] [address] Care Team Providers Name Role Phone Lillyreggierama, Clara Primary Care Physician Baer Attending Physician Allergies, Adverse Reactions, Alerts Allergen Type Severity Reaction Last Updated Verified Status codeine Adverse Reaction nausea September 26, 2016 Y Active Medications Active Medications Medication Dose Units Route Sig Qty Start Date Status Trazodone Hydrochloride 100 MG ORAL BEDTIME May 16, 2014 Active [Trazodone 100 mg tab] Fluoxetine Hydrochloride 40 MG ORAL DAILY Decembe r 2013 Active [Fluoxetine 40 mg cap] Vitamin B-2 May 27, 2017 Ac tive fiber May 27, 2017 Active Cyclobenzaprine 10 MG ORAL THREE TIMES A May 152016 Active DAY PRN For muscle spasm Ibuprofen 600 MG ORAL THREE TIMES A May 27, 7 Active DAY PRN For pain Discontinued Medications Medication Dose Units Route Sig Qty Start Date Discontinu ed Status Date 1 ORAL DAILY August 16November 13, 2011 D iscontinued 2011 Omeprazole 20 MG ORAL DAILY May 16May 27, Discontinued 2013 2016 Cyclobenzaprine 10 MG ORAL Q8H PRN 4 September 26, Decemb er 13, Discontinued For pain 2016 2016 Naproxen 500 MG ORAL TWICE A September 26May 27, Discontinued DAY 2016 2016 Problem List No problem information available. Procedures Procedure Date Status CT Lumbar Spine w/o Contrast May 27, 2017 completed Urine Culture September 26, [address] [...] Platelet Count March 06, 487 1000/mm3 High [phone] 4:28pm Mean Platelet Volume March 06, 9.6 fL 7.4-10.4 2016 4:28pm Neutrophils (%) March 06, 66.6 % 40.0-72.0 (Auto) 2016 4:28pm Lymphocytes (%) March 06, 26.6 % 17-45 (Auto) 2016 4:28pm Monocytes (%) (Auto) March 06, 5.8 % 3-11 2016 4:28pm Eosinophils (%) March 06, 0.8 % 0-3 (Auto) 2017 4:28pm Basophils (%) (Auto) March 06, 0.2 % 0-1 2016 4:28pm Neutrophils # (Auto) March 06, 7.13 1000/mm3 High 1.4-6.5 2017 4:28pm Lymphocytes # (Auto) March 06, 2.85 [...] CULTURED Sodium Level March 06, 139 mmol/L [phone] 4:28pm Potassium Level March 06, 3.9 mmol/L 3.6-5.0 2016 4:28pm Chloride Level March 06, 100 mmol/L 98-107 2016 4:28pm Carbon Dioxide Level March 06, 28 mmol/L 2016 4:28pm Anion Gap March 06-2016 4:28pm Blood Urea Nitrogen March 06, 7 mg/dL 12-29 4:28pm Creatinine March 06, 0.7 mg/dL 0.52-1.04 2016 4:28pm Glomerular Filtration March 06, > 60 mL/min Rate Calc 2016 4:28pm Glucose Level March 06, 127 mg/dL High 70-100 2016 4:28pm Calcium Level March 06, 9.9 mg/dL 8.4-10.2 2016 4:28pm Calcium Adjusted for March 06, 9.8 mg/dL 8.4-10.2 Albumin 2016 4:28pm Total Bilirubin March 06, 0.5 mg/dL [...] U/L 38-126 2016 4:28pm Amylase Level March 06, 67 U/L 30-110 2016 4:28pm Lipase March 06, 130 U/L 23-300 2016 4:28pm Folate June 17, 18.5 ng/mL Deficient: L ess than 3.4 ng/mL 2016 12:06am Indetermina te: 3.4-5.4 ng/mL Normal: Grea ter than 5.4 ng/mL Test Performed by: [place] [address] Boiler House Inspector: Bean Almanza MD , Ph D Vitamin D June 17, 59 pg/mL -----ADDITIONAL INFORMATION 1,25-Dihydroxy 2016 12:06am This alfredo t was developed and its performance characteristics determined by [facility] in a manner consistent with CLIA requirements. This test has not been cleared or approved by the U.S. Food and Drug Administration. Test Performed by: [facility] [address] [place] [address] Laboratory Dir bita: Fer Castro II, M.D., [...] Vitamin B12 Level June 3, 303 pg/mL [phone] 12:06am Tissue March 06, < 1.2 U/mL --------REFERENCE VALUE Transglutaminase IgA 2016 4:28pm <4. 0 (Negative) Ab Tissue March 06, 1.6 U/mL --------REFERENCE VALUE Transglutaminase IgG 2017 4:28pm <6. 0 (Negative) Ab Test Performed by: [facility] [address] , [place] [address] Lyme Disease March 11, Negative Referenc e Range: Negative Antibodies Value 2016 4:07pm Test Pe rformed by: [place] [address] Boiler House Inspector: Bean Almanza MD , Ph D Toxoplasma IgG March 11, Negative Antibody 2016 4:07pm Toxoplasma IgG March 11, <3 IU/mL ------- REFERENCE VALUE Antibody Index Value 2016 4:07pm <=9 IU/mL (Negative) 10-11 IU/mL (E quivocal) >=12 IU/mL (Po sitive) Test Performed by: [facility] Zeynep jon[facility] [address] [place] [id number] Microbiology Results Procedure Source Result Collection Date/Time Result Date/Time Urine Culture Ur,Clean Catch No results entered September 26, 2016 4:41 pm Advance Directives Advance Directive Response Recorded Date/Time Do we have a copy on file here at [facility]? No A [facility] 2016 3:48pm Does patient have an Advanced Directive? No March 31, 2010 9:03pm Pt has a Living Will? No March 31, 2010 9 :03pm Pt has a Power of Feeder Catcher Tobacco? No March 31, 2010 9:03pm Hospital Discharge Instructions No known hospital discharge instructions. Hospital Discharge Medications Medication Dose Units Route Sig Qty Days Order Status Instru ctions Date 1 ORAL DAILY August 16, 2011 Trazodone 100 MG ORAL BEDTIME May Hydrochloride 2013 Omeprazole 20 MG ORAL DAILY May Discontinue d 2013 Fluoxetine 40 MG ORAL DAILY May Active Hydrochloride 2013 Cyclobenzaprine 10 MG ORAL Q8H PRN September 26, Disc ontinued For pain 2016 Naproxen 500 MG ORAL TWICE A September 26, Discontinue d 2016 Vitamin B-2 May fiber May Cyclobenzaprine 10 MG ORAL THREE 26 May Active TIMES A 2016 DAY PRN For muscle spasm Ibuprofen 600 MG ORAL THREE 13 June Active TIMES A 2016 DAY PRN For pain Encounters Encounter Facility Location Admit/Visit Discharge/Departure Atte nding Date Date Provider Departed [facility] Emergency May 27May 27, 2017 [facility], [facility] 2016 7:59pm 8:00pm [facility], [facility] 6[facility] 6:[facility] March 06March 06, [facility] 8:26pm 8:27pm [facility] Departed [facility] Emergency September 26September 26, 2016 4:39pm [facility] 2016 1:49pm [facility] September 16, 2016 September 16, 2016 8:32pm [facility] 8:31pm [facility] Departed [facility] Emergency July 24July 24, 2016 [facility] Department 2016 6:09pm 7:51pm Registered [facility] 3:37[facility] Estefany Reg[facility] 4:[facility] Departed [facility] Emergency June 02June 02, 2016 [facility] Department 2015 4:34pm 9:21pm Functional Status No known functional status. Immunizations No known immunizations. Payers Payer Name Policy Type Covered Covered Relationship Subscriber Sub scriber Id Libertarian Libertarian Id [employer] Commercial DHIRAJ [id number] Self/Same as DHIRAJ EMEKA [id number] [place] EMEKA 73 Patient MEDICAID OF Medicaid [id number] Self/Same as DHIRAJ EMEKA [id number] [facility] Patient SELF PAY Personal Plan of Care No Known Plan of Care Information Social History Query Response Date Recorded Comment Living Situation With Spouse December 14, 2014 8:21am With Family Query Response Start Date Stop Date Smoking Status Never smoker Vital Signs Vital Reading Result Reference Range Collection Date/ Time Height 5 ft 4 in May 19, 2014 10:04am Weight 71.668 kg May 27 7 5:22pm Temperature 98.4 F 97.6 F-99.6 F May 27 7 5:22pm Pulse 89 BPM 60-100 May 27 7 5:22pm Respiration 20 RPM -May 27 7 5:22pm Pulse Oximetry 99 % 95-100 May 27 7 5:22pm Blood Pressure Systolic 135 100-140 May 27, 2017 5:22pm Blood Pressure Diastolic 82 50-85 [facility] 2016 5:22pm Body Mass Index n/a
--- OUTSIDE RECORDS SUMMARY | 2021-01-12 14:59 | XMS_ITS | Continuity of Care Document ---
:1980 Author Organization [facility] Address [address] [place] [address] Care Team Providers Name Role Phone Yuko, Clara Primary Care Physician Clara Huntley Attending Physician Allergies, Adverse Reactions, Alerts Allergen Type Severity Reaction Last Updated Verified Status codeine Adverse Reaction nausea August 08, 2015 N Active Medications Active Medications Medication Dose Units Route Sig Start Date Status Trazodone Hydrochloride [Trazodone 100 mg ORAL BEDTI ME May 16, 2014 Active 100 mg tab] Omeprazole 20 mg ORAL DAILY May 16, 2014 Ac tive Fluoxetine Hydrochloride [Fluoxetine 40 mg ORAL GANGA LY May 16, 2014 Active 40 mg cap] Discontinued Medications Medication Dose Units Route Sig Start Date Discontinued Date Status 1 ORAL DAILY August 17, 2011 November 13, 2011 Disc ontinued Problem List No problem information available. Procedures Procedure Date Status Chest 2 vw July 24, 2016 completed [...] Result Comment Range White Blood Count September 16, 2016 8.17 1000/mm3 4.8-10.8 4:00pm Red Blood Count September 16, 2016 4.86 M/mm3 4.20-5.40 4:00pm Hemoglobin September 16, 2016 13.2 g/dL 12.0-16.0 4:00pm Hematocrit September 16, 2016 40.1 % 37-47 4:00pm Mean Corpuscular September 16, 2016 82.5 fL 81.0-99.0 Volume 4:00pm Mean Corpuscular September 16, 2016 27.2 pg 27-31 Hemoglobin 4:00pm Mean Corpuscular September 16, 2016 32.9 g/dL Low 33-37 Hemoglobin Concent 4:00pm Red Cell Distribution September 16, 2016 13.6 % 11.5-14.5 Width 4:00pm Platelet Count September 16, 2016 455 1000/mm3 High 140-440 4:00pm Mean Platelet Volume September 16, 2016 10.2 fL 7.4-10.4 4:00pm Neutrophils (%) July 24, 53.9 % 40.0-72.0 (Auto) 2016 6:50pm Lymphocytes (%) July 24, 37.3 % 17-45 (Auto) 2016 6:50pm Monocytes (%) (Auto) July 24, 7.7 % 3-11 2016 6:50pm Eosinophils (%) July 24, 0.8 % 0-3 (Auto) 2016 6:50pm Basophils (%) (Auto) July 24, 0.3 % 0-1 2016 6:50pm Neutrophils # (Auto) July 24, 3.99 1000/mm3 1.4-6.5 2017 6:50pm Lymphocytes # (Auto) July 24, 2.76 1000/mm3 1.2-3.4 2017 6:50pm Monocytes # (Auto) July 24, 0.57 1000/mm3 0.0-0.8 2017 6:50pm Eosinophils # (Auto) July 24, 0.06 1000/mm3 0.0-0.7 2016 6:50pm Basophils # (Auto) July 24, 0.02 1000/mm3 0.0-0.1 2016 6:50pm Differential Method July 24 Automated 2016 6:50pm Erythrocyte September 16, 2016 6 mm/hr 0-15 [...] and other test results. Sodium Level September 16, 2016 141 mmol/L 137-145 4:00pm Potassium Level September 16, 2016 4.4 mmol/L 3.6-5.0 4:00pm Chloride Level September 16, 2016 101 mmol/L 98-107 4:00pm Carbon Dioxide Level September 16, 2016 26 mmol/L 22-30 4:00pm Anion Gap September 16, 2016 14 7-16 4:00pm Blood Urea Nitrogen September 16, 2016 9 mg/dL 7-17 4:00pm Creatinine September 16, 2016 0.8 mg/dL 0.52-1.04 4:00pm Glomerular Filtration September 16, 2016 > 60 mL/min Rate Calc 4:00pm Glucose Level September 16, 2016 96 mg/dL 70-100 4:00pm Calcium Level September 16, 2016 9.6 mg/dL 8.4-10.2 4:00pm Calcium Adjusted for September 16, 2016 9.4 mg/dL 8.4-10.2 Albumin 4:00pm Total Bilirubin September 16, 2016 0.5 mg/dL 0.2-1.3 4:00pm Direct Bilirubin June 02, 0.0 mg/dL 0-0.3 2015 4:47pm Aspartate Amino September 16, 2016 22 U/L 14-36 Transf (AST/SGOT) 4:00pm Alanine September 16, 2016 31 U/L 9-52 Aminotransferase 4:00pm (ALT/SGPT) Creatine Kinase September 16, 2016 62 U/L 30-137 4:00pm Troponin I July 24, < 0.012 ng/mL 0-0.034 Reference Range: <0.034 ng/mL 2016 6:50pm AMI Cut-off 0.120 ng/mL Total Protein September 16, 2016 7.3 g/dL 6.3-8.2 4:00pm Albumin September 16, 2016 4.5 g/dL 3.5-5.0 4:00pm Alkaline Phosphatase September 16, 2016 56 U/L 38-126 4:00pm Lipase July 24, 145 U/L 23-300 2016 6:50pm Folate June 17, 18.5 ng/mL Deficient: L ess than 3.4 ng/mL 2016 12:06am Indetermina te: 3.4-5.4 ng/mL Normal: Grea ter than 5.4 ng/mL Test Performed by: [place] [address] Vending Technician: Bean Almanza MD , Ph D Vitamin D June 17, 59 pg/mL -----ADDITIONAL INFORMATION 1,25-Dihydroxy 2016 12:06am This alfredo t was developed and its performance characteristics determined by [facility] in a manner consistent with CLIA requirements. This test has not been cleared or approved by the U.S. Food and Drug Administration. Test Performed by: [place] [address] Laboratory Dir bita: Fer Castro II, M.D., Ph.D. Free Thyroxine June 17, 1.26 ng/dL 0.78-2.19 2016 12:06am Thyroid Stimulating July 24, 1.43 mlU/L 0.47-4.68 Hormone (TSH) 2016 6:50pm Vitamin B12 Level June 17, 303 pg/mL [phone] 12:06am Advance Directives Advance Directive Response Recorded Date/Time Does patient have an Advanced Directive? No March 31, 2010 9:03pm Pt has a Living Will? No March 31, 2010 9 :03pm Pt has a Power of Locomotive Inspector? No March 31, 2010 9:03pm Hospital Discharge Instructions No known hospital discharge instructions. Hospital Discharge Medications Medication Dose Units Route Sig Qty Days Order Date Status In structions 1 ORAL DAILY August 162011 Trazodone 100 mg ORAL BEDTIME May Hydrochloride 2013 Omeprazole 20 mg ORAL DAILY May Fluoxetine 40 mg ORAL DAILY May Hydrochloride 2013 Encounters Encounter Facility Location Admit/Visit Discharge/Departure Atte nding Date Date Provider Departed [facility] September 16, 2016 September 16, 2016 8:32pm [facility] July 24July 24, 2016 [facility] Department 2016 6:09pm 7:51pm Registered [facility] Estefany Registered [facility] June 17, Robinson[facility] 2016 4:31pm [facility] Departed [facility] Emergency June 02June 02, 2016 [facility] Department 2015 4:34pm 9:21pm Functional Status No known functional status. Immunizations No known immunizations. Payers Payer Name Policy Type Covered Covered Relationship Subscriber Sub scriber Id Constitution Party Constitution Party Id [employer] Commercial DHIRAJ [id number] Self/Same as DHIRAJ HENDRICKSON [id number] [facility] Patient SELF PAY Personal Plan of Care No Known Plan of Care Information Social History Query Response Date Recorded Comment Living Situation With Spouse December 14, 2014 8:21am With Family Query Response Start Date Stop Date Smoking Status Never Smoker Vital Signs Vital Reading Result Reference Range Collection Date/ Time Height 5 ft 4 in May 19, 2014 10:04am Weight n/a Temperature n/a Pulse n/a Respiration n/a Pulse Oximetry n/a Blood Pressure Systolic n/a Blood Pressure Diastolic n/a Body Mass Index n/a
--- OUTSIDE RECORDS SUMMARY | 2021-01-12 14:59 | XMS_ITS | Continuity of Care Document ---
:1980 Author Organization [facility] Address [address] [place] [address] Care Team Providers Name Role Phone Yuko, [...] Platelet Count March 06, 487 1000/mm3 High [phone] 4:28pm Mean Platelet Volume March 06, 9.6 [...] CULTURED Sodium Level March 06, 139 mmol/L [phone] 4:28pm Potassium Level March 06, 3.9 mmol/L [...] than 5.4 ng/mL Test Performed by: [place] [address] Coat Check Attendant: Bean Almanza MD , Ph D Vitamin D June 17, 59 pg/mL -----ADDITIONAL INFORMATION 1,25-Dihydroxy 2016 12:06am This alfredo t was developed and its performance characteristics determined by [facility] in a manner consistent with CLIA requirements. This test has not been cleared or approved by the U.S. Food and Drug Administration. Test Performed by: [address] [address] Laboratory Dir bita: Fer Castro II, M.D., [...] Vitamin B12 Level June 3, 303 pg/mL [phone] 12:06am Tissue March 06, < 1.2 U/mL --------REFERENCE VALUE Transglutaminase IgA 2016 4:28pm <4. 0 (Negative) Ab Tissue March 06, 1.6 U/mL --------REFERENCE VALUE Transglutaminase IgG 2017 4:28pm <6. 0 (Negative) Ab Test Performed by: [facility] [address] , [place] [address] Lyme Disease March 11, Negative Referenc e Range: Negative Antibodies Value 2016 4:07pm Test Pe rformed by: [place] [address] Coat Check Attendant: Bean Almanza MD , Ph D Toxoplasma IgG March 11, Negative Antibody 2016 4:07pm Toxoplasma IgG March 11, <3 IU/mL ------- REFERENCE VALUE Antibody Index Value 2016 4:07pm <=9 IU/mL (Negative) 10-11 IU/mL (E quivocal) >=12 IU/mL (Po sitive) Test Performed by: [facility] [address] [place] [address] Microbiology Results Procedure Source Result Collection Date/Time Result Date/Time Urine Culture Ur,Clean Catch No results entered September 26, 2016 4:41 pm Advance Directives Advance Directive Response Recorded Date/Time Do we have a copy on file here at [facility]? No [facility] 2016 3:48pm Does patient have an Advanced Directive? No March 31, 2010 9:03pm Pt has a Living Will? No March 31, 2010 9 :03pm Pt has a Power of Easter Bunny? No March 31, 2010 9:03pm Hospital Discharge [...] Discharge/Departure Atte nding Date Date Provider Departed [facility] March 24March 24, 2017 Baer , [facility] 2016 7:59pm [facility] March [facility] 06, [facility] 8[facility] 8:[facility] Emergency September 26September 26, 2016 4:39pm [facility] Department 2016 1:49pm Departed [facility] [place] September 16, 2016 September 16, 2016 [facility] Departed [facility] Emergency July 24July 24, 2016 [facility] Department 2016 6:09pm 7:51pm Registered [facility] Estefany Registered [facility] [place] [facility] 4:[facility] Departed [facility] Emergency June 02June 02, 2016 Emergency [facility] Department 2015 4:34pm 9:21pm Functional Status No known functional status. Immunizations No known immunizations. Payers Payer Name Policy Type Covered Covered Relationship Subscriber Sub scriber Id Libertarian Libertarian Id ALEXA CROSS Commercial DHIRAJ [id number] Self/Same as DHIRAJ HENDRICKSON [id number] [place] EMEKA Herring Patient SELF PAY Personal Plan [...]
--- OUTSIDE RECORDS SUMMARY | 2021-01-12 14:59 | XMS_ITS | Continuity of Care Document ---
:1980 Author Organization [facility] Address [address] [place] [address] Care Team Providers Name Role Phone PCP, Delfina Primary Care Physician Unavailable Manolo Pizarro Attending Physician Allergies, Adverse Reactions, Alerts Allergen Type Severity Reaction Last Updated Verified Status codeine Adverse Reaction Unknown unknown July 01, 2019 Y Active Medications Active Medications Medication Dose Units Route Sig Qty Days Start Date St atus Norethindrone Acetate 5 MG ORAL DAILY 30 Ja nukenmare 2019 Active Multivitamin Patch Thrive December 10, [...] 20 May 2, Discontinued Potassium DAY 2017 2019 Problem List [...] Strep pharyngitis Inactive Procedures Procedure Date Status US Transvaginal Non-OB July 01, 2019 completed Urine Culture completed Relevant Diagnostic Tests and/or Laboratory Data Laboratory Results Test Date/Time Result Interp. Ref. Range Result Comment Thyroid Stimulating 0.993 mlU/L 0.47-4.68 TSH cascade is not Hormone (TSH) recommended for patients in ich pituitary or hypothalmic di sorders are suspected. Microbiology Results Procedure Source Result Collection Date/Time Result Date/Time Chief Complaint and Reason for Visit Encounter Admit Date Chief Complaint Reason for Visit Departed Clinical July 01, 2019 11:04am ULTRASOUND 60 Hospital Discharge Instructions No known hospital discharge instructions. Hospital Discharge Medications Medication Dose Units Route Sig Qty Days Order Status Instru ctions Date Norethindrone 5 MG ORAL DAILY 14 July Active Acetate 2019 1 ORAL DAILY August 16, Discontinued [...] 500 MG ORAL TWICE A 20 24 May Disconti nued Potassium DAY 2017 Encounters Encounter Facility Location Admit/Visit Discharge/Departure Atte nding Date Date Provider Departed [facility] TAIL WORKER July 01, July 01, [facility] 11:49am 11:50am Dianna h Departed [facility] July 01July 01, 2019 Morgan christianson [facility] DONATION WORKER 2019 11:07am 12:01pm Elizabe th ovider Office Visit Departed [facility] July 01July 01, 2019 Dis meghan, [facility] DONATION WORK[facility] 2019 11:06am 12:01pm Elizabe th ovider Office Visit Departed [facility] July 01July 01, 2019 Jolly bullock [facility] 2019 11:04am 11:05am Elizab eth TAIL WORKER US Departed [facility] June 23June 23, 2019 Jolly bullock [facility] DONATION WORKER 2019 9:26am 10:08am Dianna h ovider Office Visit Departed [facility] December 10, 2018 December 10, 2018 2:10 pm [facility] Urgent [facility] 12:21pm [place] Functional Status Query Response Date Recorded Comment Living Situation With Family December 10, 2018 1:04pm With Spouse Immunizations No known immunizations. Payers Payer Name Policy Type Covered Covered Relationship Subscriber Sub scriber Id Alliance Party Alliance Party Id [employer] CROSS Commercial DHIRAJ [id number] Self/Same as DHIRAJ EMEKA [id number] [facility] 73 Patient MEDICAID OF Medicaid DHIRAJ [id number] Self/Same as DHIRAJ EMEKA [id number] [facility] Patient SELF PAY Personal Plan [...]
--- OUTSIDE RECORDS SUMMARY | 2021-01-12 15:00 | XMS_ITS | Continuity of Care Document ---
:1980 Author Organization [facility] Address [address] [place] [address] Care Team Providers Name Role Phone Clara Huntley Primary Care Physician Allergies, Adverse Reactions, Alerts Allergen Type Severity Reaction Last Updated Verified Status codeine Adverse Reaction nausea August 08, 2015 N Active Medications Active Medications Medication Dose Units Route Sig Qty Days Start Discontinued Status I nstructions Date Date Trazodone 100 MG ORAL BEDTIM Decembe Active Hydrochloride E r 2013 Fluoxetine 40 MG ORAL DAILY Decembe Active Hydrochloride r 22013 Omeprazole 20 MG ORAL DAILY Decembe Active r 2, 2013 Discontinued Medications Medication Dose Units Route Sig Qty Days Start Discontinued Status I nstructions Date Date 1 ORAL DAILY AugustNovember 13, 2011 Discontinu 4, ed 2011 Problem List No problem information available. Procedures Procedure Date Status CT Abd Pel w/ Contrast June 02, 2016 active Relevant Diagnostic Tests and/or Laboratory Data Laboratory Results Test Date/Time Result Interp. Ref. Range Result Comment White Blood Count June 02.25 1000/mm3 High 4.8-10.8 2015 4:47pm Red Blood Count June 02, 5.08 M/mm3 4.20-5.40 2015 4:47pm Hemoglobin June 02, 13.7 g/dL 12.0-16.0 2015 4:47pm Hematocrit June 02, 40.5 % 37-47 2015 4:47pm Mean Corpuscular June 02, 79.7 fL Low 81.0-99.0 Volume 2015 4:47pm Mean Corpuscular June 02, 27.0 pg 27-31 Hemoglobin 2016 4:47pm Mean Corpuscular June 02, 33.8 g/dL 33-37 Hemoglobin Concent 2016 4:47pm Red Cell Distribution June 02, 13.0 % 11.5-14.5 Width 2016 4:47pm Platelet Count June 02, 451 1000/mm3 High [phone] 4:47pm Mean Platelet Volume June 02, 9.3 fL 7.4-10.4 2016 4:47pm Neutrophils (%) (Auto) June 02, 65.6 % 40.0-72.0 2016 4:47pm Lymphocytes (%) (Auto) June 02, 28.1 % 17-45 2015 4:47pm Monocytes (%) (Auto) June 02, 5.5 % 3-11 2015 4:47pm Eosinophils (%) (Auto) June 02, 0.5 % 0-3 2015 4:47pm Basophils (%) (Auto) June 02, 0.3 % 0-1 2015 4:47pm Neutrophils # (Auto) June 02, 7.38 1000/mm3 High 1.4-6.5 2015 4:47pm Lymphocytes # (Auto) June 02, 3.16 1000/mm3 1.2-3.4 2015 4:47pm Monocytes # (Auto) June 02, 0.62 1000/mm3 0.0-0.8 2015 4:47pm Eosinophils # (Auto) June 02, 0.06 1000/mm3 0.0-0.7 2015 4:47pm Basophils # (Auto) June 02, 0.03 1000/mm3 0.0-0.1 2015 4:47pm Differential Method June 022015 4:47pm Sodium Level June 02, 139 mmol/L 137-145 SPECIMEN S LIGHTLY HEMOLYZED. 2015 4:47pm Possibility o f interference exists. Please interpret results with caution. Potassium Level June 02, 3.9 mmol/L 3.6-5.0 2015 4:47pm Chloride Level June 02, 100 mmol/L 98-107 2015 4:47pm Carbon Dioxide Level June 02, 27 mmol/L -2015 4:47pm Anion Gap June 02-2015 4:47pm Blood Urea Nitrogen June 02, 10 mg/dL -2015 4:47pm Creatinine June 02, 0.7 mg/dL 0.52-1.04 2016 4:47pm Glomerular Filtration June 02, > 60 mL/min Rate Calc 2015 4:47pm Glucose Level June 02, 96 mg/dL 70-100 2015 4:47pm Calcium Level June 18, 9.9 mg/dL 8.4-10.2 2016 3:07pm Calcium Adjusted for June 18, 9.7 mg/dL 8.4-10.2 Albumin 2015 3:07pm Total Bilirubin June 02, 0.5 mg/dL 0.2-1.3 2015 4:47pm Direct Bilirubin June 02, 0.0 mg/dL 0-0.3 2015 4:47pm Aspartate Amino Transf June 02, 28 U/L 14-36 (AST/SGOT) 2015 4:47pm Alanine June 02, 25 U/L 9-52 Aminotransferase 2015 4:47pm (ALT/SGPT) Total Protein June 02, 7.7 g/dL 6.3-8.2 2015 4:47pm Albumin June 02, 4.7 g/dL 3.5-5.0 2015 4:47pm Alkaline Phosphatase June 02, 60 U/L 38-126 2015 4:47pm Lipase June 02, 161 U/L 23-300 2015 4:47pm Advance Directives Advance Directive Response Recorded Date/Time Does the patient have a living will? No Mar 9:03pm Does the patient have an advanced directive? No March 31, 2010 9:03pm Power of Blood Bank Technologist? No March 31, 2010 9:0 3pm Hospital Discharge Instructions No known hospital discharge instructions. Hospital Discharge Medications Medication Dose Units Route Sig Qty Days Order Date Status In structions 1 ORAL DAILY August 162011 Trazodone 100 MG ORAL BEDTIME May Fluoxetine 40 MG ORAL DAILY May Active 2013 Omeprazole 20 MG ORAL DAILY May Encounters Encounter Facility Location Admit Date Discharge Attending Date Provider Departed [facility] Emergency June 02June 02, [facility] Department 2015 4:34pm 2015 9:21pm Registered [facility] June 18, Hanna Huntley [facility] 2015 7:33pm Functional Status No known functional status. Immunizations No known immunizations. Payers Payer Policy Type Covered Covered Relationship Subscriber Subs criber Id Name Green Party Green Party Id SELF PAY Personal DHIRAJ SELF/SAME DHIRAJ EMEKA EMEKA PATIENT Plan of Care No known plan of care. Social History Query Response Date Recorded Comment [...]
--- OUTSIDE RECORDS SUMMARY | 2021-01-12 15:00 | XMS_ITS | Continuity of Care Document ---
:1980 Author Organization [facility] Address [address] [place] [address] Phone Care Team Providers Name Role Phone Baer Primary Care Provider PCP, Delfina Primary Care Provider Unavailable Manolo Pizarro Attending Provider Allergies, Adverse Reactions, Alerts Allergen Type Severity Reaction Last Verified Status Updated codeine Adverse Unknown unknown June Yes Active Reaction 2019 Medications Medication Status Dose Units Route Sig Qty Days Start End Instruct ions Date Date Norethindrone Active 5 MG ORAL DAILY 14 July Acetate 2019 10:05am Discontinu 1 ORAL DAILY August ed 2011 11:39pm 10:07am Trazodone Discontinu 100 MG ORAL BEDTIME May [facility] e [facility] ed , r 2013 1:33pm 12:12pm Omeprazole Discontinu 20 MG ORAL DAILY May [facility] ed , r 2013 1:54pm 5:27pm Fluoxetine Discontinu 40 MG ORAL DAILY May [facility] ed , r 2013 1:54pm 12:12pm Cyclobenzaprin Discontinu 10 MG ORAL Q8H 16 September [facility] e e ed , r 2016 4:21pm 5:27pm Naproxen Discontinu 500 MG ORAL TWICE A 02 October [facility] ed DAY , r 2016 4:21pm 5:27pm Vitamin B-2 Discontinu [facility] ed , r 2016 5:26pm 12:12pm fiber Discontinu [facility] ed , r 2016 5:26pm 12:12pm Cyclobenzaprin Discontinu 10 MG ORAL THREE May [facility] e ed TIMES A , r , DAY 2016 2017 7:39pm 12:12pm Ibuprofen Discontinu 600 MG ORAL THREE [facility] ed TIMES A , r , 2016 7:39pm 12:12pm Multivitamin Active Crystal Patch Thrive 2018 1:04pm Sulfamethoxazo Discontinu 1 TAB ORAL TWICE A 20 November le-Trimethopri ed DAY , , m 2018 2018 2:08pm 12:04am Penicillin V Discontinu 500 MG ORAL TWICE A 20 May uary Potassium ed DAY 2017 12:42pm 12:03am Problems Active Problems Medical Problem Onset Date Status Right lower quadrant abdominal May 10, 2014 Active pain 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, 2014 Active Pain in female genitalia on January 26, 2014 Active intercourse Dizziness and giddiness January 30, 2014 Active Dysmenorrhea January 26, 2014 Active 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 [address] Advance Directives Advance Directive Response Recorded Date/Time Does patient have an Advanced No March 312009 9:03pm Directive? Do we have a copy on file No September 26 3:48pm here at [facility]? Pt has a Living Will? No March 31, 2010 9:03pm Do we have a copy on file No September 26 3:48pm here at [facility]? Pt has a Power of Supervisor Grips? No March 9:03pm Do we have a copy on file No September 26 3:48pm here at [facility]? 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 Registered [facility] July 01, 2019 Nupur French [facility] 11:04am MD Carroll Pizarro MEDICAL CONCIERGE US Departed [facility] July 01, 2019 July 01, 2019 Ai French [facility] 11:06am 12:01pm MD Perez [facility] Visit n BOTTOMER OPERATOR Departed [facility] July 01, 2019 July 01, 2019 Ai French [facility] 11:07am 12:01pm MD Perez [facility] Visit n BOTTOMER OPERATOR Registered [facility] July 01, 2019 Nupur French Referred [facility]-Lab 11:49am Reji Pizarro [facility] MEDICAL CONCIERGE Assessments No Assessments Information Available Family History Relationship Condition Age at Onset Recorded Date/Ti me Parent Family history Unknown non-contributory Parent Complication of Unknown anesthesia Not Specified Family history Unknown non-contributory Functional Status Observation Response Date Recorded Living Situation With Family December 10, 2018 1:04 pm With Spouse December 10, 2018 1:04 pm Goals Goals may be documented in an alternate section. Mental Status No Mental Status Information Available Medical Equipment No Medical Equipment Information available Insurance Providers Guarantor DHIRAJ HENDRICKSON Address [address] [place] [address] Contact Info. Home Phone: Payer Policy Id Coverage Id Subscriber's Subscriber Id Effective E xpiration Name Date Date ALEXA GUARDADO [id number] DHIRAJ HENDRICKSON [id number] June 15 [place] [id number] 2016 MEDICA[place] [id number] DHIRAJ HENDRICKSON [id number] [place] SELF PAY Self N/A Plan of Treatment #RLQ abd pain: chronic pain x2mo with worse pain with menses. Has h/o dysmenorrhea and dyspareunia since delivery of last child and BTL. Possible endometriosis. Has h/o migraines w/ aura. Started on Aygestin 5mg 1wk ago for possible endometriosis. US today w/ small free fluid in R adnexa, but otherwise normal adnexa. - Continue norethindrone 5mg - RTC 3mo #AUB: Menometrorrhagia since last delivery. Low suspicion for hyperplasia or malignancy. TVUS today w/o polyp/fibroids. - TSH today - Norethindrone 5mg qd Rx sent, for both AUB and possible endometriosis #RLQ abd pain: chronic pain x2mo with worse pain with menses. Has h/o dysmenorrhea and dyspareunia since delivery of last child and BTL. Possible endometriosis. Not on hormonal medication at this time. Has h/o migraines w/ aura. - TVUS to evaluate adnexa - Norethindrone 5mg qd Rx sent #AUB: Menometrorrhagia since last delivery. Low suspicion for hyperplasia or malignancy. - TVUS to eval polyp/fibroids -- if normal will consider TSH - Norethindrone 5mg qd Rx sent, for both AUB and possible endometriosis Future Tests Future scheduled test information is unavailable Pending Tests Pending diagnostic test information is unavailable Future Visits Future appointment information is unavailable Referrals to Other Providers Reason for Referral Start Provider Provider Contact Provider Address Referral Date Information Town Out RAMAKRISHNA Baum Work Phone: QUINTEN delong Baer [address] [facility] 0[address] Orthopaedics [facility] Work Phone: [facility] Medical Office Building [address] [facility] [address] Hanna Huntley MD Work Phone: QUINTEN Buitrago urg [address] [facility] [address] Future Procedures Future procedure information is unavailable Future Medications Future medication information is unavailable Patient Instructions Abdominal Pain Back Pain Relieve Lumbosacral Strain Social History Smoking Status Status Date of Observation Never smoked tobacco (finding) July 01, 2019 11:3 0am Observation Status Observation Response Date of Response Living Situation With Spouse December 14, 2014 8:21a m With Family December 14, 2014 8:21a m Alcohol Use Yes December 10, 2018 2:31 pm alcohol intake frequency holidays/special occasions June 23, 2019 9:50am only Substance/Street Drug Use No December 10 9 2:31pm Substance Use Treatment No December 10, 2018 2:31pm substance use type does not use June 23, 2019 9: 50am Smoking Status Never smoker July 01, 2019 1 1:30am Assigned Sex Female Vital Signs Vital Reading Result Reference Range Collection Date/ Time Height 64 [in_i] December 10, 2018 1:04pm Weight 66.67 kg December 10, 2018 1:04pm Body Temperature 98.3 [degF] 97.6-99.6 December 10, 2018 1:04pm Heart Rate 76 /min 60-100 December 10, 2018 1:04pm Respiratory rate 16 /min 12-December 10, 2018 1:04pm Oxygen saturation by 99 % 95-100 December 10, 2018 1:04pm Pulse oximetry BP Systolic 124 mm[Hg] 100-140 December 10, 2018 1:04pm BP Diastolic 80 mm[Hg] 50-85 December 10, 2018 1:04pm BMI (Body Mass Index) 25.2 kg/m2 December 10, 2018 1:04pm Height 64 [in_i] June 23 0 9:43am Weight 68.03 kg June 23 0 9:43am Heart Rate 80 /min 60-100 June 23 0 9:43am Respiratory rate 16 /min -June 23 9:43am BP Systolic 121 mm[Hg] 100-140 June 23 0 9:43am BP Diastolic 71 mm[Hg] 50-85 June 23 0 9:43am BMI (Body Mass Index) 25.7 kg/m2 June 9:43am Height 64 [in_i] July 01 11:31am Heart Rate 96 /min 60-100 July 01 11:31am Respiratory rate 18 /min -July 01, 11:31am BP Systolic 113 mm[Hg] 100-140 July 01 11:31am BP Diastolic 72 mm[Hg] 50-85 July 01 11:31am Hospital Discharge Instructions Additional Instructions Take the antibiotic as prescribed. Drink plenty of fluids. Ibuprofen/tylenol as needed for discomfort. If any acute worsening such as increased pain, fevers, or vomiting go to the emergency room.
--- OUTSIDE RECORDS SUMMARY | 2021-01-12 15:00 | XMS_ITS | Continuity of Care Document ---
:1980 Author Organization [facility] Address [address] [place] [address] Care Team Providers Name Role Phone Yuko, [...] Platelet Count March 06, 487 1000/mm3 High [phone] 4:28pm Mean Platelet Volume March 06, 9.6 [...] CULTURED Sodium Level March 06, 139 mmol/L [phone] 4:28pm Potassium Level March 06, 3.9 mmol/L [...] than 5.4 ng/mL Test Performed by: [place] [address] Scheduling Clerk: Bean Almanza MD , Ph D Vitamin D June 17, 59 pg/mL -----ADDITIONAL INFORMATION 1,25-Dihydroxy 2016 12:06am This alfredo t was developed and its performance characteristics determined by [facility] in a manner consistent with CLIA requirements. This test has not been cleared or approved by the U.S. Food and Drug Administration. Test Performed by: [address] [address] Laboratory Dir bita: Fer Castro II, M.D., [...] Vitamin B12 Level June 3, 303 pg/mL [phone] 12:06am Microbiology Results Procedure Source Result Collection Date/Time Result Date/Time Urine Culture Ur,Clean Catch No results entered September 26, 2016 4:41 pm Advance Directives Advance Directive Response Recorded Date/Time Do we have a copy on file here at [place]? No A [facility] 2016 3:48pm Does patient have an Advanced Directive? No March 31, 2010 9:03pm Pt has a Living Will? No March 31, 2010 9 :03pm Pt has a Power of General Maintenance Mechanic? No March 31, 2010 9:03pm Hospital Discharge [...] Discharge/Departure Atte nding Date Date Provider Departed [facility] March 06March 06, 2017 Iveth elizabeth, [facility] 2016 8:26pm 8:[facility] September 26September 26, 2016 4:39pm [facility] Department 2016 1:49pm Departed [facility] [place] September 16, 2016 September 16, 2016 [facility] Departed [facility] Emergency July 24July 24, 2016 [facility] Department 2016 6:09pm 7:51pm Registered [facility] 2016 3:37[address] Estefany Registered [facility] [place] June 17 Yuko [facility] 2016 4:31pm [facility] Departed [facility] Emergency June 02June 02, 2016 [facility] Department 2015 4:34pm 9:21pm Functional Status No known functional status. Immunizations No known immunizations. Payers Payer Name Policy Type Covered Covered Relationship Subscriber Sub scriber Id Republican Republican Id ALEXA CROSS Commercial DHIRAJ [id number] Self/Same as DHIRAJ HENDRICKSON [id number] [place] EMEKA Herring Patient SELF PAY Personal Plan [...]
--- OUTSIDE RECORDS SUMMARY | 2021-01-12 15:00 | XMS_ITS | Continuity of Care Document ---
:1980 Author Organization [facility] Address [address] [place] [address] Care Team Providers Name Role Phone Yuko, [...] Platelet Count March 06, 487 1000/mm3 High [phone] 4:28pm Mean Platelet Volume March 06, 9.6 [...] CULTURED Sodium Level March 06, 139 mmol/L [phone] 4:28pm Potassium Level March 06, 3.9 mmol/L [...] than 5.4 ng/mL Test Performed by: [place] [address] Spreader Box Operator: Bean Almanza MD , Ph D Vitamin D June 17, 59 pg/mL -----ADDITIONAL INFORMATION 1,25-Dihydroxy 2016 12:06am This alfredo t was developed and its performance characteristics determined by [facility] in a manner consistent with CLIA requirements. This test has not been cleared or approved by the U.S. Food and Drug Administration. Test Performed by: [address] [address] Laboratory Dir bita: Fer Castro II, M.D., [...] Vitamin B12 Level June 3, 303 pg/mL [phone] 12:06am Tissue March 06, < 1.2 U/mL --------REFERENCE VALUE Transglutaminase IgA 2016 4:28pm <4. 0 (Negative) Ab Tissue March 06, 1.6 U/mL --------REFERENCE VALUE Transglutaminase IgG 2016 4:28pm <6. 0 (Negative) Ab Test Performed by: [facility] [address] [place] [address] Microbiology Results Procedure Source Result Collection Date/Time Result Date/Time Urine Culture Ur,Clean Catch No results entered September 26, 2016 4:41 pm Advance Directives Advance Directive Response Recorded Date/Time Do we have a copy on file here at [facility]? No [facility] 2016 3:48pm Does patient have an Advanced Directive? No March 31, 2010 9:03pm Pt has a Living Will? No March 31, 2010 9 :03pm Pt has a Power of Recreation Facility Attendant? No March 31, 2010 9:03pm Hospital Discharge Instructions No known hospital discharge instructions. Hospital Discharge Medications Medication Dose Units Route Sig Qty Days Order Status Instru ctions Date 1 ORAL DAILY August 162011 Trazodone 100 mg ORAL BEDTIME May Omeprazole 20 mg ORAL DAILY May Fluoxetine 40 mg ORAL DAILY May Cyclobenzaprine 10 MG ORAL Q8H PRN 4 September 26, Acti ve For pain 2016 Naproxen 500 MG ORAL TWICE A September 26, 2016 Encounters Encounter Facility Location Admit/Visit Discharge/Departure Atte nding Date Date Provider Departed [facility]March 11[facility] 6[facility] 6[facility] March 06March 06, 2017 [facility] 8:26pm 8:27pm [facility] Departed [facility] Emergency September 26September 26, 2016 4:39pm Emergency Medical Center Department 2016 1:49pm Departed [facility] September 16, 2016 September 16, 2016 [facility] Dep[facility]ed [facility] Emergency July 24July 24, 2016 Emergency [facility] Center Department 2016 6:09pm 7:51pm Registered [facility] 3:37pm Estefany Registered [facility] [place] June 17, [facility] 4:31pm Hanna Brinnon Departed [facility] Emergency June 02June 02, 2016 Emergency [facility] Center Department 2015 4:34pm 9:21pm Functional Status No known functional status. Immunizations No known immunizations. Payers Payer Name Policy Type Covered Covered Relationship Subscriber Sub scriber Id Libertarian Libertarian Id Red e App CROSS Commercial DHIRAJ [id number] Self/Same as DHIRAJ HENDRICKSON [id number] [place] [id number] Patient SELF PAY Personal Plan of Care [...]
--- OUTSIDE RECORDS SUMMARY | 2021-01-12 15:00 | XMS_ITS | Continuity of Care Document ---
:[address] [facility] Address [address] [place] [address] Phone Care Team Providers Name Role Phone [...] Trazodone Discontinu 100 MG ORAL BEDTIME May [facility] ed , r 2013 1:33pm 12:12pm Omeprazole Discontinu 20 MG ORAL DAILY May [facility] ed , r 2013 1:54pm 5:27pm Fluoxetine Discontinu 40 MG ORAL DAILY May [facility] ed , r 2013 1:54pm 12:12pm Cyclobenzaprin Discontinu 10 MG ORAL Q8H 16 September [facility] e e ed , r 2016 4:21pm 5:27pm Naproxen Discontinu 500 MG ORAL TWICE A 02 October [facility] ed DAY , r 2016 4:21pm 5:27pm Vitamin B-2 Discontinu [facility] ed , r 2016 5:26pm 12:12pm fiber Discontinu [facility] ed , r 2016 5:26pm 12:12pm Cyclobenzaprin Discontinu 10 MG ORAL THREE May emb e ed TIMES A , r , 2016 7:39pm 12:12pm Ibuprofen Discontinu 600 MG ORAL THREE May ed TIMES A , r , 2016 [...] Laboratory Data Laboratory Results Test Date/Time Result Interpretation Reference Result Perfo rming Range Comment Site Thyroid 0.993 0.47-4.68 [facility] , [address] [place] [address] Stimulating mlU/[place] [address] Hormone (TSH) recommended for patients in which pituitary or hypothalmic disorders are suspected. Microbiology Results Procedure Source Result Collection Result Result Performin g Date/Time Date/Time Comment Site Urine Culture Ur,Clean Escherichia December 12 [facility], [address] [facility] Catch Coli 2018 8:19am [place] [address] Advance Directives Advance Directive Response Recorded Date/Time Does patient have an Advanced No March 312009 9:03pm Directive? Do we have a copy on file No September 26 3:48pm here at [facility]? Pt has a Living Will? No March 31, 2010 9:03pm Do we have a copy on file No September 26 3:48pm here at [facility]? Pt has a Power of Bench Machine Operator? No March 9:03pm Do we have a copy on file No September 26 3:48pm here at [facility]? 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 Departed [facility] July 01, 2019 July 01, 2019 Ai French [facility]- 11:04am 11:05am Reji Pizarro [facility] FLOAT BUILDER Departed [facility] July 01, 2019 July 01, 2019 Ai French Physician/Prov Medical 11:06am 12:01pm MD tony Pizarro Office [facility] Visit rn 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 Home Phone: Payer Policy Id Coverage Id Subscriber's Subscriber Id Effective E xpiration Name Date Date ALEXA GUARDADO [id number] DHIRAJ HENDRICKSON [id number] June 15, [place] [address] 2016 [place] [id number] DHIRAJ HENDRICKSON [id number] [place] SELF PAY Self N/A Plan of Treatment [...] Town Out RAMAKRISHNA Baum Work Phone: QUINTEN Baer [address] [facility] [address] Orthopaedics [facility] Work Phone: [facility] Medical Office Building [address] [facility] 99 806 Hanna Huntley MD Work Phone: QUINTEN valencia [address] [facility] [address] Future Procedures Future procedure information is unavailable [...] 23 0 9:43am Respiratory rate 16 /min 12-24 June 23 9:43am BP Systolic 121 mm[Hg] 100-140 June 23 0 9:43am BP Diastolic 71 mm[Hg] 50-85 June 23, 202 0 9:43am BMI (Body Mass Index) 25.7 kg/m2 June 9:43am Height 64 [in_i] July 01, 11:31am Heart Rate 96 /min 60-100 July 01 11:31am Respiratory rate 18 /min 12-24 July 01, 2 020 11:31am BP Systolic 113 mm[Hg] 100-140 July 01 11:31am BP Diastolic 72 mm[Hg] 50-85 July 01 11:31am Hospital Discharge Instructions Additional Instructions Take the antibiotic as prescribed. Drink plenty of fluids. Ibuprofen/tylenol as needed for discomfort. If any acute worsening such as increased pain, fevers, or vomiting go to the emergency room.
--- OUTSIDE RECORDS SUMMARY | 2021-01-12 15:00 | XMS_ITS | Continuity of Care Document ---
:1980 Author Organization [facility] Address [address] [place] [address] Care Team Providers Name Role Phone Out [...] ed Status Date 1 ORAL DAILY August 16, November 13, 2011 D iscontinued 2011 Omeprazole 20 [...] Platelet Count March 06, 487 1000/mm3 High [phone] 4:28pm Mean Platelet Volume March 06, 9.6 [...] CULTURED Sodium Level March 06, 139 mmol/L [phone] 4:28pm Potassium Level March 06, 3.9 mmol/L [...] mg/dL High 70-100 2017 4:28pm Calcium Level Maki 22, 9.9 mg/dL 8.4-10.2 2016 4:28pm Calcium Adjusted for March 06, 9.8 mg/dL 8.4-10.2 Albumin 2016 4:28pm Total Bilirubin March 06, 0.5 mg/dL 0.2-1.3 2016 4:28pm Direct Bilirubin June 02, 0.0 mg/dL 0-0.3 2015 4:47pm Aspartate Amino March 06, 29 U/L 14-36 Transf (AST/SGOT) 2016 4:28pm Alanine March 06 38 U/L 9-52 Aminotransferase 2016 4:28pm (ALT/SGPT) [...] than 5.4 ng/mL Test Performed by: [place] [address] Sliver Lapper: Bean Almanza MD , Ph D Vitamin D June 17, 59 pg/mL -----ADDITIONAL INFORMATION 1,25-Dihydroxy 2016 12:06am This alfredo t was developed and its performance characteristics determined by [facility] in a manner consistent with CLIA requirements. This test has not been cleared or approved by the U.S. Food and Drug Administration. Test Performed by: [facility] [address] [place] [address] Laboratory Dir bita: Fer Castro II, M.D., [...] Vitamin B12 Level June 3, 303 pg/mL [phone] 12:06am Tissue March 06, < 1.2 U/mL --------REFERENCE VALUE Transglutaminase IgA 2016 4:28pm <4. 0 (Negative) Ab Tissue March 06, 1.6 U/mL --------REFERENCE VALUE Transglutaminase IgG 2017 4:28pm <6. 0 (Negative) Ab Test Performed by: [facility] [address] , [place] [address] Lyme Disease March 11, Negative Referenc e Range: Negative Antibodies Value 2016 4:07pm Test Pe rformed by: [place] [address] Sliver Lapper: Bean Almanza MD , Ph D Toxoplasma IgG March 11, Negative Antibody 2016 4:07pm Toxoplasma IgG March 11, <3 IU/mL ------- REFERENCE VALUE Antibody Index Value 2016 4:07pm <=9 IU/mL (Negative) 10-11 IU/mL (E quivocal) >=12 IU/mL (Po sitive) Test Performed by: [facility] Zeynep castillo [facility] [address] [place] [address] Microbiology Results Procedure Source Result Collection Date/Time Result Date/Time Urine Culture Ur,Clean Catch No results entered September 26, 2016 4:41 pm Advance Directives Advance Directive Response Recorded Date/Time Do we have a copy [place] here [place] [facility]? No A pri 2016 3:48pm Does patient have an Advanced Directive? No March 31, 2010 9:03pm Pt has a Living Will? No March 31, 2010 9 :03pm Pt has a Power of Pole Setter? No March 31, 2010 9:03pm Chief Complaint and Reason for Visit Encounter Admit Date Chief Complaint Reason for Visit Departed Emergency May 27, 2017 5:21pm [facility] Hospital Discharge Instructions Additional Discharge Instructions I suspect you are avalos ving muscle spasms of the lower back secondary to lumbar marleny nosis, a common degenerative condition of th e vertebrae in the lower back. Usually supporti ve care at home with some rest, ibuprofen, muscle relaxer, alternating cold with heat will resolve this. In some cases it can cause repetitive episode s and chronic pain.. I advise you to follow up with orthopaedics for further evaluation. You may need physical therapy or other treatments if your pain persists. Instruction/Education Provided Lumbosacral Strain Hospital Discharge Medications Medication Dose Units Route Sig Qty Days Order Status Instru ctions Date 1 ORAL DAILY August 16, Discontinued 2011 Trazodone 100 MG ORAL BEDTIME May Active Hydrochloride 2013 Omeprazole 20 MG ORAL DAILY [...] Discharge/Departure Atte nding Date Date Provider Departed [facility] Emergency May 27May 27, 2017 [facility] Department 2016 5:21pm 7:49pm Departed [facility] Pathology April 02April 02, 2017 [facility] 9[facility] 9:[facility]March [facility], 2017 Baer [facility] 2016 7:59pm 8:00pm [facility] 11March 11, 2017 [facility] 6:48pm 6:49pm [facility]March 06, [facility] 8:26pm 8:27pm [facility] Departed [facility] Emergency September 26September 26, 2016 4:39pm [facility] Department 2016 1:49pm Departed [facility] [place] September 16, 2016 September 16, 2016 8[facility] Departed [facility] Emergency July 24July 24, 2016 Emergency Medical Center Department 2016 6:09pm 7:51pm Registered [facility] 3:37pm [facility] 4:[facility] Departed [facility] Emergency June 02June 02, 2016 Emergency Medical Center Department 2015 4:34pm 9:21pm Functional Status No known functional status. Immunizations No known immunizations. Payers Payer Name Policy Type Covered Covered Relationship Subscriber Sub scriber Id Libertarian Libertarian Id BLUE CROSS Commercial DHIRAJ [id number] Self/Same as DHIRAJPADMA HENDRICKSON [id number] [facility] 71 Patient MEDICAID OF Medicaid DHIRAJ [id number] Self/Same as DHIRAJ EMEKA [id number] [facility] Patient SELF PAY Personal Plan of Care Instructions Lumbosacral Strain Social History Query Response Date Recorded Comment Living Situation With Spouse December 14, 2014 8:21am With Family Query Response Start Date Stop Date Smoking Status Never smoker Vital Signs Vital Reading Result Reference Range Collection Date/ Time Height 5 ft 4 in May 19, 2014 10:04am Weight 71.668 kg May 27 7 5:22pm Temperature 98.4 F 97.6 F-99.6 F May 27 5:22pm Pulse 89 BPM 60-100 May 27 5:22pm Respiration 20 RPM -May 27 7 5:22pm Pulse Oximetry 99 % 95-100 May 27 7 5:22pm Blood Pressure Systolic 135 100-140 May 27, 2017 5:22pm Blood Pressure Diastolic 82 50-85 [facility] 2016 5:22pm Body Mass Index n/a
--- OUTSIDE RECORDS SUMMARY | 2021-01-12 15:00 | XMS_ITS | Continuity of Care Document ---
:1980 Author Organization Address [address] [place] [address] Phone Care Team Providers Name Role Phone Baer Primary Care Provider Allergies, Adverse Reactions, Alerts Allergen Type Severity Reaction Last Verified Status Updated codeine Adverse Unknown unknown June Yes Active Reaction 2019 Medications Medication Status Dose Units Route Sig Qty Days Start End Instruct ions Date Date Norethindrone Active 5 MG ORAL DAILY 14 July Acetate 2019 10:05am Discontinu 1 ORAL DAILY August ed , 2011 11:39pm 10:07am Trazodone Discontinu 100 MG ORAL BEDTIME May [facility] ed , r 2013 1:33pm 12:12pm Omeprazole Discontinu 20 MG ORAL DAILY May [facility] ed , r 2013 1:54pm 5:27pm Fluoxetine Discontinu 40 MG ORAL DAILY May [facility] ed , r 2013 1:54pm 12:12pm Cyclobenzaprin Discontinu 10 MG ORAL Q8H 16 September [facility] e e ed , r 2016 4:21pm 5:27pm Naproxen Discontinu 500 MG ORAL TWICE A 02 October [facility] ed DAY , r 2016 4:21pm 5:27pm Vitamin B-2 Discontinu May [facility] ed 13, r 2016 5:26pm 12:12pm fiber Discontinu Maymbe ed 13, r 2016 5:26pm 12:12pm Cyclobenzaprin Discontinu 10 MG ORAL THREE May embe e ed TIMES A 13, r , 2016 7:39pm 12:12pm Ibuprofen Discontinu [...] spine September 14, 2014 Active with myelopathy Inactive/Resolved Problems Medical Problem Onset Date Status Pyelonephritis Resolved Strep pharyngitis Resolved Procedures Procedure Date Performed Status Urine Culture completed Relevant Diagnostic Tests and/or Laboratory Data Microbiology Results Procedure Source Result Collection Result Result Performin g Date/Time Date/Time Comment Site Urine Culture Ur,Clean Escherichia December 12 [facility], [address] Catch Coli 2018 8:19am [facility] [address] Advance Directives Advance Directive Response Recorded Date/Time Does patient have an Advanced No March 312009 9:03pm Directive? Do we have a copy on file No September 26 3:48pm here at [place]? Pt has a Living Will? No March 31, 2010 9:03pm Do we have a copy on file No September 26 3:48pm here at [place]? Pt has a Power of Architectural Wood Model Maker? No March 9:03pm Do we have a copy on file No September 26 3:48pm here at [place]? 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 Home Phone: Payer Policy Id Coverage Id Subscriber's Subscriber Id Effective E xpiration Name Date Date BLUE CROSS [id number] DHIRAJ HENDRICKSON [id number] June 15 [place] 2016 [place] [id number] DHIRAJ HENDRICKSON [id number] [place] SELF PAY Self N/A Plan of Treatment Future Tests Future scheduled test information is unavailable Pending Tests Pending diagnostic test information is unavailable Future Visits Future appointment information is unavailable Referrals to Other Providers Reason for Referral Start Provider Provider Contact Provider Address Referral Date Information Town Out RAMAKRISHNA Baum Work Phone: QUINTEN delong Baer [address] [facility] 05 76 Orthopaedics [place] Work Phone: [place] Medical Office Building [address] [facility] 05 [address]48 Hanna Huntley MD Work Phone: QUINTEN [place] [address] [facility] [address] Future Procedures Future procedure information is unavailable Future Medications Future medication information is unavailable Patient Instructions Abdominal Pain Back Pain Relieve Lumbosacral Strain Social History Smoking Status Status Date of Observation Never smoked tobacco (finding) June 23, 2019 9:50a m Observation Status Observation Response Date of Response [...] 2019 9: 50am Smoking Status Never smoker June 23, 2019 9: 50am Assigned Sex Female Vital Signs Vital Reading [...] (Body Mass Index) 25.7 kg/m2 June 9:43am Hospital Discharge Instructions Additional Instructions Take the antibiotic as prescribed. Drink plenty of fluids. Ibuprofen/tylenol as needed for discomfort. If any acute worsening such as increased pain, fevers, or vomiting go to the emergency room.
--- OUTSIDE RECORDS SUMMARY | 2021-01-12 15:00 | XMS_ITS | Continuity of Care Document ---
:1980 Author Organization [facility] Address [address] [place] [address] Care Team Providers Name Role Phone Lillyreggierama, [...] Platelet Count March 06, 487 1000/mm3 High [phone] 4:28pm Mean Platelet Volume March 06, 9.6 [...] CULTURED Sodium Level March 06, 139 mmol/L 177-953 1896 4:28pm Potassium Level March 06, 3.9 mmol/L [...] than 5.4 ng/mL Test Performed by: [place] [address] Boot Maker: Bean Almanza MD , Ph D Vitamin D June 17, 59 pg/mL -----ADDITIONAL INFORMATION 1,25-Dihydroxy 2016 12:06am This alfredo t was developed and its performance characteristics determined by [facility] in a manner consistent with CLIA requirements. This test has not been cleared or approved by the U.S. Food and Drug Administration. Test Performed by: [facility] [address] [place] [address] Laboratory Dir bita: Fer Castro II, M.D., [...] Vitamin B12 Level June 3, 303 pg/mL [phone] 12:06am Tissue March 06, < 1.2 U/mL --------REFERENCE VALUE Transglutaminase IgA 2016 4:28pm <4. 0 (Negative) Ab Tissue March 06, 1.6 U/mL --------REFERENCE VALUE Transglutaminase IgG 2017 4:28pm <6. 0 (Negative) Ab Test Performed by: [facility] [address] , [place] [address] Lyme Disease March 11, Negative Referenc e Range: Negative Antibodies Value 2016 4:07pm Test Pe rformed by: [place] [address] Boot Maker: Bean Almanza MD , Ph D Toxoplasma IgG March 11, Negative Antibody 2016 4:07pm Toxoplasma IgG March 11, <3 IU/mL ------- REFERENCE VALUE Antibody Index Value 2016 4:07pm <=9 IU/mL (Negative) 10-11 IU/mL (E quivocal) >=12 IU/mL (Po sitive) Test Performed by: [facility] Zeynep jonathan [facility] [address] [place] [address] Microbiology Results Procedure Source Result Collection Date/Time Result Date/Time Urine Culture Ur,Clean Catch No results entered September 26, 2016 4:41 pm Advance Directives Advance Directive Response Recorded Date/Time Do we have a copy on file here at [facility]? No [facility] 2016 3:48pm Does patient have an Advanced Directive? No March 31, 2010 9:03pm Pt has a Living Will? No March 31, 2010 9 :03pm Pt has a Power of Scuba Diver? No March 31, 2010 9:03pm Hospital Discharge [...] Discharge/Departure Atte nding Date Date Provider Departed [facility] Emergency May 27May 27, 2017 [facility] 5[facility] 7[facility] 9:21pm 9:22pm [facility] March 24March 24, 2017 [facility] 2016 7:59pm 8:00pm [facility]ista [facility] March 11March 11, 2017 [facility] 6:48pm 6:49pm [facility] Departed [facility] March 06March 06, 2017 [facility] 2016 8:26pm 8:27pm [facility] Departed [facility] Emergency September 26September 26, 2016 4:39pm [facility] Department 2016 1:49pm [facility] September 16, 2016 September 16, 2016 8:32pm [facility] 8:31pm [facility] Departed [facility] Emergency July 24July 24, 2016 Emergency [facility] Center Department 2016 6:09pm 7:51pm Registered [facility] Cardiology July 16, [facility] 3:37pm Estefany Registered [facility] June [facility], [facility] 2016 4:31pm [facility] Departed [facility] Emergency June 02June 02, 2016 Emergency [facility] Center Department 2015 4:34pm 9:21pm Functional Status No known functional status. Immunizations No known immunizations. Payers Payer Name Policy Type Covered Covered Relationship Subscriber Sub scriber Id Green Party Green Party Id [employer] Commercial DHIRAJ [id number] Self/Same as DHIRAJ EMEKA [id number] [place] E[place]KA 73 Patient MEDICAID OF Medicaid DHIRAJ [id number] Self/Same as DHIRAJ EMEKA [id number] [facility] Patient SELF PAY Personal [...] 2017 5:22pm Blood Pressure Diastolic 82 50-85 [facility] 2016 5:22pm Body Mass Index n/a
--- OUTSIDE RECORDS SUMMARY | 2021-01-12 15:00 | XMS_ITS | Continuity of Care Document ---
:1980 Author Organization [facility] Address [address] [place] [address] Phone Care Team Providers Name Role Phone Baer Primary Care Provider PCP, Delfina Primary Care Provider Unavailable Manolo Pizarro Attending Provider Baer Attending Provider Allergies, Adverse Reactions, Alerts Allergen Type Severity Reaction Last Verified Status Updated codeine Adverse Unknown june Yes Active Reaction 2019 Medications Medication Status Dose Units Route Sig Qty Days Start End Instruct ions Date Date Norethindrone Active 5 MG ORAL DAILY 14 July Acetate 2019 10:05am Discontinu 1 ORAL DAILY August ed 2011 11:39pm 10:07am Trazodone Discontinu 100 MG ORAL BEDTIME May [facility] ed , r 2013 1:33pm 12:12pm Omeprazole Discontinu 20 MG ORAL DAILY May [facility] ed , r 2013 1:54pm 5:27pm Fluoxetine Discontinu 40 MG ORAL DAILY May [facility] ed , r 2013 1:54pm 12:12pm Cyclobenzaprin Discontinu 10 MG ORAL Q8H 16 September [facility] e e ed , r 2016 4:21pm 5:27pm Naproxen Discontinu 500 MG ORAL TWICE A 20 [facility], r 2016 4:21pm 5:27pm Vitamin B-2 Discontinu May [facility] e ed , r 2016 5:26pm 12:12pm fiber Discontinu May [facility] ed , r 2016 5:26pm 12:12pm Cyclobenzaprin Discontinu 10 MG ORAL THREE May [facility] ed TIMES A , r , 2016 7:39pm 12:12pm Ibuprofen Discontinu 600 MG ORAL THREE Maye ed TIMES A , r , 2016 [...] Procedures Procedure Date Performed Status Urine Culture August 16, 2019 active US Transvaginal Non-OB July 01, 2019 completed Urine Culture December 10, 2018 completed Relevant Diagnostic Tests and/or Laboratory Data Laboratory Results Test Date/Time Result Interpretation Reference Result Perfo rming Range Comment Site Thyroid June 0.993 0.47-4.68 TSH [place] MAIN LAB , [address] [facility] Stimulating 2019 mlU/[place] [address] Hormone (TSH) 11:49am recommended for patients in which pituitary or hypothalmic disorders are suspected. Microbiology Results Procedure Source Result Collection Result Result Performin g Date/Time Date/Time Comment Site Urine Culture Ur,Clean Escherichia Crystal 28December 12DOMINIK IN LAB, [address] Catch Coli 2019 1:42pm 2018 8:19am [place] [address] Advance Directives Advance Directive Response Recorded Date/Time Does patient have an Advanced No March 312009 9:03pm Directive? Do we have a copy on file No September 26 3:48pm here at [facility]? Pt has a Living Will? No March 31, 2010 9:03pm Do we have a copy on file No September 26 3:48pm here at [facility]? Pt has a Power of Golf Sales Associate? No March 9:03pm Do we have a copy on file No September 26 3:48pm here at [facility]? 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 Encounters Encounter Location(s) Arrival/Admit Date Discharge/Depart Date Provider(s) Departed [facility] December 10, 2018 December 10, 2018 [facility] Emergency Medical 12:21pm 2:10pm Helen-Aiden rn Urgent [facility] Departed [facility] June 23, 2019 June 23, 2019 Beba French Physician/Prov Medical 9:26am 10:08am MD teto Pizarror Office [facility] Visit rn NEWSPAPER CARRIER Departed [facility] July 01, 2019 July 01, 2019 Ai French [facility]- 11:04am 11:05am Reji Pizarro [facility] 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 Departed [facility] July 01, 2019 July 01, 2019 Ai French Physician/Prov Medical 11:06am 12:01pm MD tony Pizarro Office [facility] Visit rn NEWSPAPER CARRIER Departed [facility] July 01, 2019 July 01, 2019 Ai French Physician/Prov Medical 11:07am 12:01pm MD tony Pizarro Office [facility] Visit rn NEWSPAPER CARRIER Departed [facility] July 01, 2019 July 01, 2019 Ai French [facility] 11:49am 11:50am MD [facility] 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 Home Phone: Payer Policy Id Coverage Id Subscriber's Subscriber Id Effective E xpiration Name Date Date ALEXA GUARDADO [id number] DHIRAJ HENDRICKSON [id number] June 15 [place] [address] 1 2016 MEDICA[place] [id number] DHIRAJ HENDRICKSON [id number] [place] SELF PAY Self N/A Plan of Treatment [...] Work Phone: QUINTEN delong Baer [address] [place] [address] Orthopaedics [facility] Work Phone: [facility] Medical Office Building [address] [facility] [place] [address] Hanna Huntley MD Work Phone: QUINTEN [employer] [address] [place] [address] Future Procedures Future procedure information is unavailable [...] 10, 2018 1:04pm Respiratory rate 16 /min 12-24 December 10, 2018 1:04pm Oxygen saturation by 99 [...] 23 0 9:43am Respiratory rate 16 /min 12-June 23, 20 9:43am BP Systolic 121 mm[Hg] 100-140 June 23 0 9:43am BP Diastolic 71 mm[Hg] 50-85 June 23 0 9:43am BMI (Body Mass Index) 25.7 kg/m2 June 9:43am Height 64 [in_i] July 01 11:31am Heart Rate 96 /min 60-100 July 01, 11:31am Respiratory rate 18 /min 12-July 01, 020 11:31am BP Systolic 113 mm[Hg] 100-140 July 01 11:31am BP Diastolic 72 mm[Hg] 50-85 July 01 11:31am Hospital Discharge Instructions Additional Instructions Take the antibiotic as prescribed. Drink plenty of fluids. Ibuprofen/tylenol as needed for discomfort. If any acute worsening such as increased pain, fevers, or vomiting go to the emergency room.
--- OUTSIDE RECORDS SUMMARY | 2021-01-12 15:00 | XMS_ITS | Continuity of Care Document ---
:1980 Author Organization [facility] Address [address] [place] [address] Care Team Providers Name Role Phone Clara [...] MG ORAL THREE TIMES A May 27, 201 7 Active DAY PRN For pain Discontinued [...] Platelet Count March 06, 487 1000/mm3 High [phone] 4:28pm Mean Platelet Volume March 06, 9.6 [...] 0.0-0.1 2016 4:28pm Differential Method March 06, 2016 4:28pm Erythrocyte March 06, 7 mm/hr [...] CULTURED Sodium Level March 06, 139 mmol/L 278-648 1931 4:28pm Potassium Level March 06, 3.9 mmol/L 3.6-5.0 2016 4:28pm Chloride Level March 06, 100 mmol/L 98-107 2016 4:28pm Carbon Dioxide Level March 06, 28 mmol/L 2016 4:28pm Anion Gap March 06-2016 4:28pm Blood Urea Nitrogen March 06, 7 mg/dL 12-29 4:28pm Creatinine March 06, 0.7 mg/dL 0.52-1.04 2016 4:28pm Glomerular Filtration March 06, > 60 mL/min Rate Calc 2016 4:28pm Glucose Level Maki 22, 127 mg/dL High 70-100 2016 4:28pm Calcium [...] than 5.4 ng/mL Test Performed by: [place] [address] Hay Chopper: Bean Almanza MD , Ph D Vitamin D June 17, 59 pg/mL -----ADDITIONAL INFORMATION 1,25-Dihydroxy 2016 12:06am This alfredo t was developed and its performance characteristics determined by [facility] in a manner consistent with CLIA requirements. This test has not been cleared or approved by the U.S. Food and Drug Administration. Test Performed by: [facility] [address] [place] [address] Laboratory Dir bita: Fer Castro II, M.D., [...] mg/dL 2016 12:06am Vitamin B12 Level June 17, 303 pg/mL [phone] 12:06am Tissue March 06, < 1.2 U/mL --------REFERENCE VALUE Transglutaminase IgA 2016 4:28pm <4. 0 (Negative) Ab Tissue March 06, 1.6 U/mL --------REFERENCE VALUE Transglutaminase IgG 2017 4:28pm <6. 0 (Negative) Ab Test Performed by: [facility] [place] [address] , [place] [address] Lyme Disease March 11, Negative Referenc e Range: Negative Antibodies Value 2016 4:07pm Test Pe rformed by: [place] [address] Hay Chopper: Bean Almanza MD , Ph D Toxoplasma IgG March 11, Negative Antibody 2016 4:07pm Toxoplasma IgG March 11, <3 IU/mL ------- REFERENCE VALUE Antibody Index Value 2016 4:07pm <=9 IU/mL (Negative) 10-11 IU/mL (E quivocal) >=12 IU/mL (Po sitive) Test Performed by: [facility] Zeynep mcmahoncaleb [facility] [address] [place] [address] Microbiology Results Procedure Source Result Collection Date/Time Result Date/Time Urine Culture Ur,Clean Catch No results entered September 26, 2016 4:41 pm Advance Directives Advance Directive Response Recorded Date/Time Do we have a copy on file here at [facility]? No A pri 2016 3:48pm Does patient have an Advanced Directive? No March 31, 2010 9:03pm Pt has a Living Will? No March 31, 2010 9 :03pm Pt has a Power of Temporary Office Assistant? No March 31, 2010 9:03pm Hospital Discharge [...] Discharge/Departure Atte nding Date Date Provider Departed [facility] Emergency May 27May 27, 2017 [facility] Department 2016 5:21pm 7:49pm Departed [facility] Pathology April 02April 02, 2017 Bindu whalen [facility] 2016 9:21pm 9:22pm [facility] 24March 24, 2017 [facility] 2016 7:59pm 8:00pm [facility]March 11, [facility] 6:48pm 6:49pm [facility] Departed [facility] March 06March 06, 2017 [facility] 2016 8:26pm 8:27pm [facility] Departed [facility] Emergency September 26September 26, 2016 4:39pm [facility] Department 2016 1:49pm Departed [facility] [place] September 16, 2016 September 16, 2016 8:[facility] Hanna Algona Departed [facility] Emergency July 24July 24, 2016 Emergency [facility] Department 2016 6:09pm 7:51pm Registered [facility] Cardiology July 16, [facility] 2016 3:37pm Estefany Registered [facility] [place] June 17, [facility] 2016 4:31pm [facility] Departed [facility] Emergency June 02June 02, 2016 Emergency [facility] Center Department 2015 4:34pm 9:21pm Functional Status No known functional status. Immunizations No known immunizations. Payers Payer Name Policy Type Covered Covered Relationship Subscriber Sub scriber Id Republican Republican Id Last Guide Commercial DHIRAJ [id number] Self/Same as DHIRAJ EMEKA [id number] [place] E[place]KA 73 Patient MEDICAID OF Medicaid DHIRAJ [id number] Self/Same as DHIRAJ EMEKA [id number] [facility] Patient SELF PAY [...] May 27 7 5:22pm Respiration 20 RPM 12-May 27 7 5:22pm Pulse Oximetry 99 % 95-100 May 27 7 5:22pm Blood Pressure Systolic 135 100-140 May 27, 2017 5:22pm Blood Pressure Diastolic 82 50-85 [facility] 2016 5:22pm Body Mass Index n/a
--- OUTSIDE RECORDS SUMMARY | 2021-01-12 15:00 | XMS_ITS | Continuity of Care Document ---
:1980 Author Organization [facility] Address [address] [place] [address] Care Team Providers Name Role Phone PCP, Delfina Primary Care Physician Unavailable Manolo Pizarro Attending Physician Allergies, Adverse Reactions, Alerts Allergen Type Severity Reaction Last Updated Verified Status codeine Adverse Reaction Unknown unknown July 01, 2019 Y Active Medications Active Medications Medication Dose Units Route Sig Qty Days Start Date St [facility] Norethindrone Acetate 5 MG ORAL DAILY 30 Ja [place] 2019 Active Multivitamin Patch Thrive December 10, [...] Procedure Source Result Collection Date/Time Result Date/Time Hospital Discharge Instructions No known hospital discharge [...] Vitamin B-2 May Discontinu ed 2016 fiber Neal Discontinued 2016 Cyclobenzaprine 10 MG ORAL THREE [...] Discharge/Departure Atte nding Date Date Provider Departed [facility] LIBERAL ARTS DEAN July 01, July 01, 2019 Praveen rene [facility] 2019 11:49am 11:50am Dianna elder Departed [facility] July 01July 01, 2019 Morgan christianson [facility] CASUALTY UNDERWRITER 2019 11:07am 12:01pm Elizabe th ovider Office Visit Departed [facility] July 01July 01, 2019 Morgan christianson [facility] CASUALTY UNDERWRITER 2019 11:06am 12:01pm Elizabe th ovider Office Visit Departed [facility] July 01July 01, 2019 Jolly bullock [facility] 2019 11:04am 11:05am Elinirb eth LIBERAL ARTS DEAN US Departed [facility] June 23June 23, 2019 Jolly bullock [facility] CASUALTY UNDERWRITER 2019 9:26am 10:08am Dianna h ovider Office Visit Departed [facility] December 10, 2018 December 10, 2018 2:10 pm [facility]gent [facility] 12:21pm [place] Functional Status Query Response Date Recorded Comment Living Situation With Family December 10, 2018 1:04pm With Spouse Immunizations No known immunizations. Payers Payer Name Policy Type Covered Covered Relationship Subscriber Sub scriber Id Democrat Democrat Id [employer] Commercial DHIRAJ [id number] Self/Same as DHIRAJ EMEKA [id number] [facility] 73 Patient MEDICAID OF Medicaid DHIRAJ [id number] Self/Same as DHIRAJ EMEKA [id number] [facility] Patient SELF PAY Personal Plan of [...]
--- OUTSIDE RECORDS SUMMARY | 2021-01-12 15:00 | XMS_ITS | Continuity of Care Document ---
:1980 Author Organization [facility] Address [address] [place] [address] Phone Care Team Providers Name Role Phone Bare Primary Care Provider PCP, Delfina Primary Care [...] Trazodone Discontinu 100 MG ORAL BEDTIME May [facility] e [facility] ed , r 2013 1:33pm 12:12pm Omeprazole Discontinu 20 MG ORAL DAILY May [facility] ed , r 2013 1:54pm 5:27pm Fluoxetine Discontinu 40 MG ORAL DAILY May [facility] ed , r 2013 1:54pm 12:12pm Cyclobenzaprin Discontinu 10 MG ORAL Q8H 16 September [facility] e e ed , r 2016 4:21pm 5:27pm Naproxen Discontinu 500 MG ORAL TWICE A 02 October [facility] ed DAY , r 2016 [...] 0.993 0.47-4.68 TSH cascade MAIN LAB , [address] [place] [address] Stimulating mlU/[place] [address] Hormone (TSH) recommended for patients in which pituitary or hypothalmic disorders are suspected. Microbiology Results Procedure Source Result Collection Result Result Performin g Date/Time Date/Time Comment Site Urine Culture Ur,Clean Escherichia December 12 [facility], [address] [facility] Catch Coli 2018 8:19[place] [address] Advance Directives Advance Directive Response Recorded Date/Time Does patient have an Advanced No March 312009 9:03pm Directive? Do we have a copy on file No September 26 3:48pm here at [facility]? Pt has a Living Will? No March 31, 2010 9:03pm Do we have a copy on file No September 26 3:48pm here at [facility]? Pt has a Power of Director Of Social Services? No March 9:03pm Do we have a copy on file No September 26 3:48pm here at [facility]? 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 60 SUPPORT SERVICE TECH US follow up Encounters Encounter Location(s) Arrival/Admit Date Discharge/Depart Date Provider(s) Departed [facility] December 10, 2018 December 10, 2018 [facility] Emergency Medical 12:21pm 2:10pm SpreckelsNegrito rn Urgent [facility] Departed [facility] June 23, 2019 June 23, 2019 Beba French Physician/Prov Medical 9:26am 10:08am MD tony Pizarro Office [facility] Visit rn BASS GUITAR TEACHER Departed [facility] July 01, 2019 July 01, 2019 Ai French [facility]- 11:04am 11:05am Reji Pizarro [facility] PIZZA HUT ASSISTANT Departed [facility] July 01, 2019 July 01, 2019 Ai French Physician/Prov Medical 11:06am 12:01pm MD tony Pizarro Office [facility] Visit rn BASS GUITAR TEACHER Departed [facility] July 01, 2019 July 01, 2019 Ai French Physician/Prov Medical 11:07am 12:01pm MD tony Pizarro Office [facility] Visit rn BASS GUITAR TEACHER Departed [facility] July 01, 2019 July 01, 2019 Ai French Referred Medical 11:49am 11:50am MD [facility] PIZZA HUT ASSISTANT Assessments No Assessments Information Available Family History [...] Insurance Providers Guarantor DHIRAJ HENDRICKSON Address [address] [facility] [address] Contact Info. Home Phone: Payer Policy Id Coverage Id Subscriber's Subscriber Id Effective E xpiration Name Date Date ALEXA GUARDADO [id number] DHIRAJ HENDRICKSON [id number] June 15, [place] [address] 2016 MEDICA[place] [id number] DHIRAJ HENDRICKSON [id number] [place] SELF PAY Self N/A Plan of Treatment [...] RAMAKRISHNA Baum Work Phone: QUINTEN Baer [address] [facility] 6[address] Orthopaedics [facility] Work Phone: [facility] Medical Office Building [address] [facility] [address] Hanna Huntley MD Work Phone: QUINTEN valencia [address] [facility] [address] Future Procedures Future procedure information is unavailable [...]
--- OUTSIDE RECORDS SUMMARY | 2021-01-12 15:00 | XMS_ITS | Continuity of Care Document ---
:1980 Author Organization [facility] Address [address] [place] [address] Care Team Providers Name Role Phone Yuko, [...] Platelet Count March 06, 487 1000/mm3 High [phone] 4:28pm Mean Platelet Volume March 06, 9.6 [...] CULTURED Sodium Level March 06, 139 mmol/L [phone] 4:28pm Potassium Level March 06, 3.9 mmol/L [...] than 5.4 ng/mL Test Performed by: [place] [address] Audiovisual Technician: Bean Almanza MD , Ph D Vitamin D June 17, 59 pg/mL -----ADDITIONAL INFORMATION 1,25-Dihydroxy 2016 12:06am This alfredo t was developed and its performance characteristics determined by [facility] in a manner consistent with CLIA requirements. This test has not been cleared or approved by the U.S. Food and Drug Administration. Test Performed by: [address] [address] Laboratory Dir bita: Fer Castro II, M.D., [...] Vitamin B12 Level June 3, 303 pg/mL [phone] 12:06am Tissue March 06, < 1.2 U/mL --------REFERENCE VALUE Transglutaminase IgA 2016 4:28pm <4. 0 (Negative) Ab Tissue March 06, 1.6 U/mL --------REFERENCE VALUE Transglutaminase IgG 2016 4:28pm <6. 0 (Negative) Ab Test Performed by: [facility] [address] [place] [address] Microbiology Results Procedure Source Result Collection Date/Time Result Date/Time Urine Culture Ur,Clean Catch No results entered September 26, 2016 4:41 pm Advance Directives Advance Directive Response Recorded Date/Time Do we have a copy on file here at [facility]? No A [facility] 2016 3:48pm Does patient have an Advanced Directive? No March 31, 2010 9:03pm Pt has a Living Will? No March 31, 2010 9 :03pm Pt has a Power of Registered Nursing Professor? No March 31, 2010 9:03pm Hospital Discharge [...] Discharge/Departure Atte nding Date Date Provider Departed [facility]March 11, [facility] 6[facility] 6:[facility] Dep[facility]ed [facility] March 06March 06, 2017 [facility] 8:26pm 8:27pm [facility] Departed [facility] Emergency September 26September 26, 2016 4:39pm [facility] Department 2016 1:49pm Departed [facility] September 16, 2016 September 16, 2016 8[facility]pm [facility] Departed [facility] Emergency July 24July 24, 2016 [facility] Department 2016 6:09pm 7:51pm Registered [facility], [facility] 3:37pm Estefany Registered [facility] [place] June 17[facility] 4:31pm Hanna [place] Departed [facility] Emergency June 02June 02, 2016 [facility] Department 2015 4:34pm 9:21pm Functional Status No known functional status. Immunizations No known immunizations. Payers Payer Name Policy Type Covered Covered Relationship Subscriber Sub scriber Id Democrat Democrat Id Primeloop CROSS Commercial DHIRAJ [id number] Self/Same as DHIRAJ HENDRICKSON [id number] [place] [id number] Patient SELF PAY Personal Plan of Care [...]
--- OUTSIDE RECORDS SUMMARY | 2021-01-12 15:00 | XMS_ITS | Continuity of Care Document ---
:1980 Author Organization [facility] Address [address] [place] [address] Care Team Providers Name Role Phone Lillyreggierama, [...] Platelet Count March 06, 487 1000/mm3 High [phone] 4:28pm Mean Platelet Volume March 06, 9.6 [...] CULTURED Sodium Level March 06, 139 mmol/L [phone] 4:28pm Potassium Level March 06, 3.9 mmol/L [...] than 5.4 ng/mL Test Performed by: [place] [address] Pump Servicer Supervisor: Bean Almanza MD , Ph D Vitamin D June 17, 59 pg/mL -----ADDITIONAL INFORMATION 1,25-Dihydroxy 2016 12:06am This alfredo t was developed and its performance characteristics determined by [facility] in a manner consistent with CLIA requirements. This test has not been cleared or approved by the U.S. Food and Drug Administration. Test Performed by: [facility] [address] [place] [address] Laboratory Dir bita: Fer Castro II, M.D., [...] Vitamin B12 Level June 3, 303 pg/mL [phone] 12:06am Tissue March 06, < 1.2 U/mL --------REFERENCE VALUE Transglutaminase IgA 2016 4:28pm <4. 0 (Negative) Ab Tissue March 06, 1.6 U/mL --------REFERENCE VALUE Transglutaminase IgG 2017 4:28pm <6. 0 (Negative) Ab Test Performed by: [facility] [address] , [place] [address] Lyme Disease March 11, Negative Referenc e Range: Negative Antibodies Value 2016 4:07pm Test Pe rformed by: [place] [address] Pump Servicer Supervisor: Bean Almanza MD , Ph D Toxoplasma IgG March 11, Negative Antibody 2016 4:07pm Toxoplasma IgG March 11, <3 IU/mL ------- REFERENCE VALUE Antibody Index Value 2016 4:07pm <=9 IU/mL (Negative) 10-11 IU/mL (E quivocal) >=12 IU/mL (Po sitive) Test Performed by: [facility] Zeynep jonathan [facility] [address] [place] [address] Microbiology Results Procedure Source Result Collection Date/Time Result Date/Time Urine Culture Ur,Clean Catch No results entered September 26, 2016 4:41 pm Advance Directives Advance Directive Response Recorded Date/Time Do we have a copy on file here at [facility]? [facility] 3:48[facility] Does patient have an Advanced Directive? No March 31, 2010 9:03pm Pt has a Living Will? No March 31, 2010 9 :03pm Pt has a Power of Property Disposal Officer? No March 31, 2010 9:03pm Hospital Discharge [...] Discharge/Departure Atte nding Date Date Provider Departed [facility] Emergency May 27May 27, 2017 [facility] Department 2016 5:21pm 7[facility]April [facility], [facility] 9:21[facility] 9:22pm [facility]March [facility], [address] [facility] 2016 7:59pm 8:00pm [facility] March 11March 11, 2017 [facility] 2016 6:48pm 6:49pm [facility] Departed [facility] March 06March 06, 2017 [facility] 2016 8:26pm 8:27pm [facility] Departed [facility] Emergency September 26September 26, 2016 4:39pm [facility] Department 2016 1:[facility] September 16, 2016 September 16, 2016 8:32pm [facility] 8:31pm [facility] Departed [facility] Emergency July 24July 24, 2016 [facility] Department 2016 6:09pm 7:51pm Registered [facility] 2016 3:37pm Estefany Registered [facility] June 17, [facility] 2016 4:31pm [facility] Departed [facility] Emergency June 02June 02, 2016 [facility] Department 2015 4:34pm 9:21pm Functional Status No known functional status. Immunizations No known immunizations. Payers Payer Name Policy Type Covered Covered Relationship Subscriber Sub scriber Id Green Party Green Party Id Responsa Commercial DHIRAJ [id number] Self/Same as DHIRAJ EMEKA [id number] [place] EMEKA 73 Patient MEDICAID OF Medicaid [id number] Self/Same as DHIRAJ EMEKA [id number] [facility] Patient SELF PAY [...] 2017 5:22pm Blood Pressure Diastolic 82 50-85 [facility] 2016 5:22pm Body Mass Index n/a
--- OUTSIDE RECORDS SUMMARY | 2021-01-12 15:00 | XMS_ITS | Continuity of Care Document ---
:1980 Author Organization [facility] Address [address] [place] [address] Care Team Providers Name Role Phone Out [...] Platelet Count March 06, 487 1000/mm3 High [phone] 4:28pm Mean Platelet Volume March 06, 9.6 [...] CULTURED Sodium Level March 06, 139 mmol/L [phone] 4:28pm Potassium Level March 06, 3.9 mmol/L [...] than 5.4 ng/mL Test Performed by: [place] [address] Handbag Stitcher: Bean Almanza MD , Ph D Vitamin D June 17, 59 pg/mL -----ADDITIONAL INFORMATION 1,25-Dihydroxy 2016 12:06am This alfredo t was developed and its performance characteristics determined by [facility] in a manner consistent with CLIA requirements. This test has not been cleared or approved by the U.S. Food and Drug Administration. Test Performed by: [facility] [address] [place] [address] Laboratory Dir bita: Fer Castro II, M.D., [...] Vitamin B12 Level June 3, 303 pg/mL [phone] 12:06am Tissue March 06, < 1.2 U/mL --------REFERENCE VALUE Transglutaminase IgA 2016 4:28pm <4. 0 (Negative) Ab Tissue March 06, 1.6 U/mL --------REFERENCE VALUE Transglutaminase IgG 2017 4:28pm <6. 0 (Negative) Ab Test Performed by: [facility] [place] [address] , [place] [address] Lyme Disease March 11, Negative Referenc e Range: Negative Antibodies Value 2016 4:07pm Test Pe rformed by: [place] [address] Handbag Stitcher: Bean Almanza MD , Ph D Toxoplasma IgG March 11, Negative Antibody 2016 4:07pm Toxoplasma IgG March 11, <3 IU/mL ------- REFERENCE VALUE Antibody Index Value 2016 4:07pm <=9 IU/mL (Negative) 10-11 IU/mL (E quivocal) >=12 IU/mL (Po sitive) Test Performed by: [facility] Zeynep castillo [facility] [address] [place] [address] Microbiology Results Procedure Source Result Collection Date/Time Result Date/Time Urine Culture Ur,Clean Catch No results entered September 26, 2016 4:41 pm Advance Directives Advance Directive Response Recorded Date/Time Do we have a copy on file here at [facility]? No A pri 2016 3:48pm Does patient have an Advanced Directive? No March 31, 2010 9:03pm Pt has a Living Will? No March 31, 2010 9 :03pm Pt has a Power of Cable Supervisor? No March 31, 2010 9:03pm Chief Complaint [...] Discharge/Departure Atte nding Date Date Provider Departed [facility] Emergency May 27May 27, 2017 [facility] Department 2016 5:21pm 7:49pm Departed [facility] Pathology April 02April 02, 2017 [facility] 9:21pm 9:22pm [facility] 24March 24, 2017 Ba[facility] 2016 7:59pm 8:00pm [facility] March 11March 11, 2017 [facility] 2016 6:48pm 6:49pm [facility] March 06March 06, [facility] 2016 8:26pm 8:27pm [facility] Departed [facility] Emergency September 26September 26, 2016 4:39pm [facility] Department 2016 1:49pm Departed [facility] [place] September 16, 2016 September 16, 2016 [facility] 8[facility] Departed [facility] Emergency July 24July 24, 2016 [facility] Department 2016 6:09pm 7:51pm Registered [facility], [facility] 2016 3:37pm Estefany [facility] 2016 4:31pm [facility] Departed [facility] Emergency June 02June 02, 2016 Emergency [facility] Department 2015 4:34pm 9:21pm Functional Status No known functional status. Immunizations No known immunizations. Payers Payer Name Policy Type Covered Covered Relationship Subscriber Sub scriber Id Democrat Democrat Id BLUE CROSS Commercial DHIRAJ [id number] Self/Same as DHIRAJPADMA HENDRICKSON [id number] [facility] 73 Patient MEDICAID OF Medicaid DHIRAJ [id number] Self/Same as DHIRAJ EMEKA [id number] [facility] Patient SELF [...] 2017 5:22pm Blood Pressure Diastolic 82 50-85 [facility] 2016 5:22pm Body Mass Index n/a
--- OUTSIDE RECORDS SUMMARY | 2021-01-12 15:00 | XMS_ITS | Continuity of Care Document ---
:1980 Author Organization [facility] Address [address] [place] [address] Phone Care Team Providers Name Role Phone Baer Primary Care Provider PCP, Delfina Primary Care Provider Unavailable Manolo Piazrro Attending Provider Allergies, Adverse Reactions, Alerts Allergen [...] Trazodone Discontinu 100 MG ORAL BEDTIME May [facility] e [facility] ed , r 2013 1:33pm 12:12pm Omeprazole Discontinu 20 MG ORAL DAILY May [facility] ed , r 2013 1:54pm 5:27pm Fluoxetine Discontinu 40 MG ORAL DAILY May [facility] ed , r 2013 1:54pm 12:12pm Cyclobenzaprin Discontinu 10 MG ORAL Q8H 16 September [facility] e e ed , r 2016 4:21pm 5:27pm Naproxen Discontinu 500 MG ORAL TWICE A 02 October [facility] ed DAY , r 2016 4:21pm [...] Escherichia December 12 [facility], [address] Catch Coli 2018 8:19[place] [address] Advance Directives Advance Directive Response Recorded Date/Time Does patient have an Advanced No March 312009 9:03pm Directive? Do we have a copy on file No September 26 3:48pm here [place] [facility]? Pt has a Living Will? No March 31, 2010 9:03pm Do we have a copy on file No September 26 3:48pm here at [facility]? Pt has a Power of Plate Put In Worker? No March 9:03pm Do we have a copy on file No September 26 3:48pm here at [facility]? 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 60 COMMUNICATIONS CONSULTANT US follow up Encounters Encounter Location(s) Arrival/Admit Date Discharge/Depart Provi arline(s) Date Departed [facility] December 10, 2018 December 10, 2018 [facility] Emergency Medical 12:21pm 2:10pm [facility] [facility] Urgent [facility] Departed [facility] June 23, 2019 June 23, 2019 Beba French Physician[facility] 9:26am 10:08am MD Moira arline [facility] Visit n HYSTER MACHINE OPERATOR Registered [facility] July 01, 2019 Nupur French [facility] 11:04am MD Carroll Pizarro [employer] US Departed [facility] July 01, 2019 July 01, 2019 Ai French Physician[facility] 11:06am 12:01pm MD Perez [facility] Visit n HYSTER MACHINE OPERATOR Departed [facility] July 01, 2019 July 01, 2019 Ai French Phys[facility] 11:07am 12:01pm MD Perez [facility] Visit n HYSTER MACHINE OPERATOR Registered [facility] July 01, 2019 Nupur French [facility] 11:49am Reji Pizarro [facility] [employer] AND [employer]GER Assessments No Assessments Information Available Family History [...] Insurance Providers Guarantor DHIRAJ HENDRICKSON Address [address] [place] [address] Contact Info. Home Phone: Payer Policy Id Coverage Id Subscriber's Subscriber Id Effective E xpiration Name Date Date ALEXA GUARDADO [id number] DHIRAJ HENDRICKSON [id number] June 15 [place] [address] 2016 [address] [id number] DHIRAJ HENDRICKSON [id number] [place] SELF PAY Self N/A Plan of [...] Work Phone: QUINTEN delong Baer [address] [facility] 0[address] Orthopa[facility]ics [facility] Work Phone: [facility] Medical Office Building [address] [facility] [address] Hanna Huntley MD Work Phone: QUINTEN [employer] urg [address] [facility] [address] Future Procedures Future procedure information is unavailable [...]
--- OUTSIDE RECORDS SUMMARY | 2021-01-12 15:00 | XMS_ITS | Continuity of Care Document ---
:1980 Author Organization [facility] Address [address] [place] [address] Care Team Providers Name Role Phone Clara [...] MG ORAL DAILY Decembe Active Hydrochloride r 2, 2013 Omeprazole 20 MG ORAL DAILY Decembe Active r 2, 2013 Discontinued Medications Medication Dose Units Route Sig Qty Days Start Discontinued Status I nstructions Date Date 1 ORAL DAILY AugustNovember 13, 2011 Discontinu 4, ed 2011 Problem List No problem information available. Procedures Procedure Date Status Chest 2 vw July 24, [address] Abd Pel w/ Contrast June 02, 2016 completed Relevant Diagnostic Tests and/or Laboratory Data Laboratory Results Test Date/Time Result Interp. Ref. Result Comment Range White Blood Count July 24, 7.40 1000/mm3 4.8-10.8 2016 6:50pm Red Blood Count July 24, 4.76 M/mm3 4.20-5.40 2016 6:50pm Hemoglobin July 24, 12.7 g/dL 12.0-16.0 2016 6:50pm Hematocrit July 24, 38.6 % 37-47 2016 6:50pm Mean Corpuscular July 24, 81.1 fL 81.0-99.0 Volume 2016 6:50pm Mean Corpuscular July 24, 26.7 pg Low 27-31 Hemoglobin 2017 6:50pm Mean Corpuscular July 24, 32.9 g/dL Low 33-37 Hemoglobin Concent 2017 6:50pm Red Cell Distribution July 24, 13.3 % 11.5-14.5 Width 2017 6:50pm Platelet Count July 24, 433 1000/mm3 [phone] 6:50pm Mean Platelet Volume July 24, 9.3 fL 7.4-10.4 2016 6:50pm Neutrophils (%) July 24, 53.9 % 40.0-72.0 (Auto) 2017 6:50pm Lymphocytes (%) July 24, 37.3 % 17-45 (Auto) 2016 6:50pm Monocytes (%) (Auto) July 24, 7.7 % 3-11 2016 6:50pm Eosinophils (%) July 24, 0.8 % 0-3 (Auto) 2016 6:50pm Basophils (%) (Auto) July 24, 0.3 % 0-1 2016 6:50pm Neutrophils # (Auto) July 24, 3.99 1000/mm3 1.4-6.5 2016 6:50pm Lymphocytes # (Auto) July 24, 2.76 1000/mm3 1.2-3.4 2016 6:50pm Monocytes # (Auto) July 24, 0.57 1000/mm3 0.0-0.8 2016 6:50pm Eosinophils # (Auto) July 24, 0.06 1000/mm3 0.0-0.7 2016 6:50pm Basophils # (Auto) July 24, 0.02 1000/mm3 0.0-0.1 2016 6:50pm Differential Method July 24, Automated 2016 6:50pm D-Dimer July 24, < 100 ng/mLDDU 1-600 This test should 2017 6:50pm not be used a s absolute evide nce for PE or DVT. As with all in vi tro diagnostic alfredo ts, the results sh ould be interpreted by clinician in conjunction wi clinical findi ngs and other test results. Sodium Level July 24, 141 mmol/L [phone] 6:50pm Potassium Level July 24, 3.8 mmol/L 3.6-5.0 2016 6:50pm Chloride Level July 24, 104 mmol/L 98-107 2016 6:50pm Carbon Dioxide Level July 24, 23 mmol/L -2016 6:50pm Anion Gap July 2412-28 6:50pm Blood Urea Nitrogen July 24, 9 mg/dL 12-29 6:50pm Creatinine July 24, 0.7 mg/dL 0.52-1.04 2016 6:50pm Glomerular Filtration July 24, > 60 mL/min Rate Calc 2016 6:50pm Glucose Level July 24, 99 mg/dL 70-100 2016 6:50pm Total Bilirubin June 02, 0.5 mg/dL 0.2-1.3 2015 4:47pm Direct Bilirubin June 02, 0.0 mg/dL 0-0.3 2015 4:47pm Aspartate Amino June 02, 28 U/L 14-36 Transf (AST/SGOT) 2015 4:47pm Alanine June 02, 25 U/L 9-52 Aminotransferase 2015 4:47pm (ALT/SGPT) Troponin I July 24, < 0.012 ng/mL 0-0.034 Reference Range: <0.034 ng/mL 2016 6:50pm AMI Cut-off 0.120 ng/mL Total Protein June 02, 7.7 g/dL 6.3-8.2 2015 4:47pm Albumin June 02, 4.7 g/dL 3.5-5.0 2015 4:47pm Alkaline Phosphatase June 02, 60 U/L 38-126 2015 4:47pm Lipase July 24, 145 U/L 23-300 2016 6:50pm Folate June 17, 18.5 ng/mL Deficient: L ess than 3.4 ng/mL 2016 12:06am Indetermina te: 3.4-5.4 ng/mL Normal: Grea ter than 5.4 ng/mL Test Performed by: [place] [address] Receiving Coordinator: Bean Almanza MD , Ph D Vitamin D June 17, 59 pg/mL -----ADDITIONAL INFORMATION 1,25-Dihydroxy 2016 12:06am This alfredo t was developed and its performance characteristics determined by [facility] in a manner consistent with CLIA requirements. This test has not been cleared or approved by the U.S. Food and Drug Administration. Test Performed by: [facility] [address] [place] [address] Laboratory Dir bita: Fer Castro II, M.D., Ph.D. Free Thyroxine June 17, 1.26 ng/dL 0.78-2.19 2016 12:06am Thyroid Stimulating July 24, 1.43 mlU/L 0.47-4.68 Hormone (TSH) 2016 6:50pm Vitamin B12 Level June 17, 303 pg/mL [phone] 12:06am Advance Directives Advance Directive Response Recorded Date/Time Does the patient have a living will? No Mar ernesto2009 9:03pm Does the patient have an advanced directive? No March 31, 2010 9:03pm Power of X Ray Service Technician? No March 31, 2010 9:0 3pm Hospital Discharge Instructions No known hospital discharge instructions. Hospital Discharge Medications Medication Dose Units Route Sig Qty Days Order Date Status In structions 1 ORAL DAILY August 162011 Trazodone 100 MG ORAL BEDTIME May Hydrochloride 2013 Fluoxetine 40 MG ORAL DAILY May Active Hydrochloride 2013 Omeprazole 20 MG ORAL DAILY May Encounters Encounter Facility Location Admit Date Discharge Attending Date Provider Departed [facility] Emergency July 24July 24, [facility] Department 2016 6:09pm 2016 7:51pm Registered [facility] Cardiology July 16, Yaima Burdick [facility] 2016 3:37pm Registered [facility] [place] June 17, Hanna Huntley [facility] 2016 4:31pm Departed [facility] Emergency June 02June 02, [facility] Department 2016 4:34pm 2016 9:21pm Functional Status No known functional status. Immunizations No known immunizations. Payers Payer Policy Type Covered Covered Relationship Subscriber Subs criber Id Name Democrat Democrat Id [place] BLUE Commercial DHIRAJ [id number] SELF/SAME DHIRAJPADMA MURPHYIS [id number] CROSS EMEKA 1 PATIENT Plan of Care No known plan [...]
--- OUTSIDE RECORDS SUMMARY | 2021-01-12 15:00 | XMS_ITS | Continuity of Care Document ---
:1980 Author Organization [facility] Address [address] [place] [address] Care Team Providers Name Role Phone Clara [...] 6:50pm Platelet Count July 24, 433 1000/mm3 [phone] 6:50pm Mean Platelet Volume July 24, 9.3 [...] results. Sodium Level July 24, 141 mmol/L [phone] 6:50pm Potassium Level July 24, 3.8 mmol/L [...] than 5.4 ng/mL Test Performed by: [place] [address] Paid Search Specialist: Bean Almanza MD , Ph D Vitamin D June 17, 59 pg/mL -----ADDITIONAL INFORMATION 1,25-Dihydroxy 2016 12:06am This alfredo t was developed and its performance characteristics determined by [facility] in a manner consistent with CLIA requirements. This test has not been cleared or approved by the U.S. Food and Drug Administration. Test Performed by: [facility] [address] [place] [address] Laboratory Dir bita: Fer Castro II, M.D., Ph.D. Free Thyroxine June 17, 1.26 ng/dL 0.78-2.19 2016 12:06am Thyroid Stimulating July 24, 1.43 mlU/L 0.47-4.68 Hormone (TSH) 2016 6:50pm Vitamin B12 Level June 17, 303 pg/mL [phone] 12:06am Advance Directives Advance Directive Response Recorded Date/Time Does the patient have a living will? No Mar ernesto2009 9:03pm Does the patient have an advanced directive? No March 31, 2010 9:03pm Power of Woods Laborer? No March 31, 2010 9:0 3pm Hospital [...] Admit Date Discharge Attending Date Provider Departed [facility] Emergency July 24July 24, [facility] Department 2016 6:09pm 2016 7:51pm Registered [facility] Cardiology July 16, Yaima Burdick [facility] 2016 3:37pm Registered [facility] [place] June 17, Hanna Huntley [facility] 2016 4:31pm Departed [facility] Emergency June 02June 02, Emergency [facility] Department 2016 4:34pm 2016 9:21pm Functional Status No known functional status. Immunizations No known immunizations. Payers Payer Policy Type Covered Covered Relationship Subscriber Subs criber Id Name Republican Republican Id [place] BLUE Commercial DHIRAJ [id number] SELF/SAME DHIRAJPADMA MURPHYIS [id number] CROSS EMEKA 1 PATIENT Plan of Care [...]
[2021-01-12 21:33] LABS: Bilirubin Negative (Negative); Blood Moderate (Negative); Clarity Clear (Clear); Glucose Negative (Negative); Ketones Negative (Negative); Leukocyte Esterase Small (Negative); Nitrite Negative (Negative); Urobilinogen 0.2 EU/dL (Up TO 0.2)
[2021-01-12 21:46] LABS: Bacteria Few HPF (Negative); C & S Indicated? Yes; Crystals Negative HPF (Negative); Epithelial Cells Few HPF (Negative); Mucus Negative (Negative); RBC 0-2 HPF (0-2)
== END 2021-01-12 14:42 | disposition home or self-care (01) ==
LOC: LBN 14:41
PROVIDERS: Visit Provider Physician Assistant Medical
DX: N39.0 Urinary tract infection, site not specified (principal)
CPT/HCPCS: 81003; 81015; 87086